=== PATIENT | female | born 1995 | race Caucasian/White ===

== ENCOUNTER 2018-09-08 08:12 | Emergency (ER) | payer SELFPAY ==
--- NOTE | 2018-09-08 09:09 | Emergency Department Report ---
ED General Adult HPI - General Chief complaint: Medical Clearance Stated complaint: BLOOD TEST/ULTRASOUND Time Seen by Provider: 09/08/18 08:43 Source: patient Mode of arrival: Ambulatory Limitations: No Limitations - History of Present Illness Initial comments: Patient presents to emergency department for repeat beta hCG level for concerns of a miscarriage. Patient was here on Thursday for vaginal bleeding and abdominal cramping. - Related Data Previous Rx's Medication Instructions Recorded Last Taken Type No.137/Iron/Folic Acd 1 each PO QDAY 30 Days #30 tablet 09/05/18 Unknown Rx [ Vitamin Tablet] Allergies Allergy/AdvReac Type Severity Reaction Status Date / Time No Known Allergies Allergy Verified 09/08/18 08:18 ED Review of Systems ROS: Stated complaint: BLOOD TEST/ULTRASOUND Other details as noted in HPI Comment: All other systems reviewed and negative Constitutional: denies: chills, fever Eyes: denies: eye pain, eye discharge, vision change ENT: denies: ear pain, throat pain Respiratory: denies: cough, shortness of breath, wheezing Cardiovascular: denies: chest pain, palpitations Endocrine: no symptoms reported Gastrointestinal: denies: abdominal pain, nausea, diarrhea Genitourinary: denies: urgency, dysuria, discharge Musculoskeletal: denies: back pain, joint swelling, arthralgia Skin: denies: rash, lesions Neurological: denies: headache, weakness, paresthesias Psychiatric: denies: anxiety, depression Hematological/Lymphatic: denies: easy bleeding, easy bruising ED Past Medical Hx - Past Medical History Previous Medical History?: No Additional medical history: Miscarriage 2014 - Social History Smoking Status: Never Smoker Substance Use Type: None - Medications Home Medications: Home Medications Medication Instructions Recorded Confirmed Last Taken Type No.137/Iron/Folic Acd 1 each PO QDAY 30 Days #30 tablet 09/05/18 Unknown Rx [ Vitamin Tablet] ED Physical Exam - General Limitations: No Limitations General appearance: alert, in no apparent distress - Head Head exam: Present: atraumatic, normocephalic - Eye Eye exam: Present: normal appearance - ENT ENT exam: Present: mucous membranes moist - Neck Neck exam: Present: normal inspection - Respiratory Respiratory exam: Present: normal lung sounds bilaterally. Absent: respiratory distress - Cardiovascular Cardiovascular Exam: Present: regular rate, normal rhythm. Absent: systolic murmur, diastolic murmur, rubs, gallop - GI/Abdominal GI/Abdominal exam: Present: soft, normal bowel sounds - Extremities Exam Extremities exam: Present: normal inspection - Back Exam Back exam: Present: normal inspection - Neurological Exam Neurological exam: Present: alert, oriented X3, CN II-XII intact. Absent: motor sensory deficit - Psychiatric Psychiatric exam: Present: normal affect, normal mood - Skin Skin exam: Present: warm, dry, intact, normal color. 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 ED Disposition Clinical Impression: Miscarriage, threatened, early Disposition: - TO HOME OR SELFCARE Is pt being admited?: No Does the pt Need Aspirin: No Condition: Stable Instructions: Threatened Miscarriage (ED) Referrals: PRIMARY CAREMD [Primary Care Provider] - 3-5 Days ANTONY AGUILAR MD [Staff Physician] - 3-5 Days [facility] [Provider Group] - 3-5 Days [facility] [Provider Group] - 3-5 Days Time of Disposition: 09:08
[2018-09-08 09:53] VITALS: BP 130/81
[2018-09-09] MEDS ORDERED: NACL 0.9% 50 ML ONE (10:33)
== END 2018-09-08 09:41 | disposition home or self-care (01) ==
LOC: ED 08:12
DX: O26.891 Other specified pregnancy related conditions, first trimester (principal); O20.0 Threatened abortion; Z3A.00 Weeks of gestation of pregnancy not specified
CPT/HCPCS: 36415; 84702; 99283

== ENCOUNTER 2019-10-31 19:40 | Inpatient (IN) | payer MEDICAID ==
[2019-10-31] MEDS ORDERED: fentaNYL 100 MCG/2 ML INJ IV PRN (21:34)
[2019-10-31] MEDS ORDERED: BUTORPHANOL 2 MG/1 ML INJ IV PRN (21:34)
[2019-10-31] MEDS ORDERED: ZOLPIDEM 5 MG TAB PO PRN (21:39)
[2019-10-31] MEDS ORDERED: DINOPROSTONE 10 MG VAG SUPP VG ONE (21:39)
[2019-10-31 22:14] LABS: Hematocrit 35.9 % (30.3-42.9); Hemoglobin 11.6 gm/dl (10.1-14.3); Mean Corpuscular HGB Conc 32 % (30-34); Mean Corpuscular Volume 77 fl (79-97); Platelet Count 183 K/mm3 (140-440); Red Blood Count 4.68 M/mm3 (3.65-5.03); Red Cell Distribution Width 19.1 % (13.2-15.2)
--- NOTE | 2019-11-01 09:04 | History and Physical Report ---
History of Present Illness Date of examination: 11/01/19 Date of admission: 10/31/19 19:40 Chief complaint: IOL secondary to post-dates History of present illness: 24 yo, @ 41 wks gestation, initiated care with [facility] at 13 wks gestation. Her has been complicated by an elevated HgbA1c of 5.7; Morbid obesity; Vit D deficiency; elevated 1 hr gtt - 146; HSVII positive status; and subclinical hypothyroidism. She presents to [facility] for IOL secondary to post-dates . She reports +FM, denies VB or LOF. Labs: O+; antibody negative; Rubella immune; VDRL non-reactive; HBsAg negative; HIV negative; Platelets 223k; Gc/Chlamydia/Trich negative; Hgb A1c 5.7; Vit D 15.2; Varicella immune; HSVII positive; MSAFP/Multiple markers negative; 1 hr 146; 3 hr - 85, 184, 140, 123; GBS negative. Past History Past Medical History: other (SAB - 2014, 2017) Past Surgical History: no surgical history Family/Genetic History: stroke (father), other (ID - father) Social history: , lives with family, full code. denies: smoking, alcohol abuse, prescription drug abuse, IV drug use - Obstetrical History Expected Date of Delivery: 10/25/19 Actual Gestation: 41 Week(s) 0 Day(s) : 3 Para: 0 Hx # Term Pregnancies: 0 Number of Pregnancies: 0 Spontaneous Abortions: 2 Induced : 0 Number of Living Children: 0 #1 year: 2,015 (SAB) #2 year: 2,018 (SAB) Medications and Allergies Allergies Allergy/AdvReac Type Severity Reaction Status Date / Time No Known Allergies Allergy Verified 09/08/18 08:18 Home Medications Medication Instructions Recorded Confirmed Last Taken Type No.137/Iron/Folic Acd 1 each PO QDAY 30 Days #30 tablet 09/05/18 11/01/19 10/31/19 12:00 Rx [ Vitamin Tablet] Active Meds: Active Medications Butorphanol Tartrate (Stadol) 2 mg IV Q4HR PRN PRN Reason: Pain , Severe (7-10) Fentanyl (Sublimaze) 100 mcg IV Q2H PRN PRN Reason: Labor Pain Lactated Ringer's (Lactated Ringers) 1,000 mls @ 125 mls/hr IV DIRECT RUTHIE Zolpidem Tartrate (Ambien) 5 mg PO QHS PRN PRN Reason: Sleep Last Admin: 11/01/19 00:21 Dose: 5 mg Documented by: Review of Systems All systems: negative - Vital Signs Vital signs: Vital Signs Pulse Pulse Ox 92 H 98 10/31/19 20:37 10/31/19 20:37 Temp Pulse Resp BP Pulse Ox 98.1 F 67 20 113/73 98 10/31/19 20:38 11/01/19 00:06 10/31/19 20:38 11/01/19 00:06 10/31/19 20:37 - Physical Exam Breasts: Positive: deferred Cardiovascular: Regular rate Lungs: Positive: Normal air movement Abdomen: Positive: other (gravid) Genitourinary (Female): Positive: normal external genitalia, normal perenium Vagina: Positive: normal moisture Uterus: Positive: enlarged (S=D) Extremities: Positive: normal Deep Tendon Reflex Grade: Normal +2 - Obstetrical FHR: category 1 Uterine Contraction Monitor Mode: External Cervical Dilatation: 0 Cervical Effacement Percentage: 50 station: -3 Uterine Contraction Pattern: Irregular Uterine Tone Measurement Phase: Resting Uterine Contraction Intensity: Mild Results Result Diagrams: 10/31/19 21:49 Abnormal lab results 10/31/19 Range/Units 21:49 MCV 77 L (79-97) fl MCH 25 L (28-32) pg RDW 19.1 H (13.2-15.2) % All other labs normal. Assessment and Plan - Patient Problems (1) Post-dates Current Visit: Yes Status: Acute (2) Encounter for induction of labor Current Visit: Yes Status: Acute Plan to address problem: Admit to L & D IOL with cervidil x 12 hrs as tolerated IV pain medications if needed Anticipate (3) Morbid obesity Current Visit: Yes Status: Acute (4) Adult hypothyroidism Current Visit: Yes Status: Acute
[2019-11-01] MEDS ORDERED: DINOPROSTONE 10 MG VAG SUPP VG ONE (15:23)
[2019-11-02] MEDS ORDERED: OXYTOCIN DRIP 30,000 MILLIUNITS/500 ML BAG IV ONE (03:34)
[2019-11-02] MEDS: LACTATED RINGERS 1,000 ML IV SCH ×2 (04:01→16:14)
[2019-11-02] MEDS ORDERED: OXYTOCIN DRIP 30 UNITS/500 ML BAG IV ONE (09:00)
--- NOTE | 2019-11-02 09:58 | Progress Note ---
Assessment and Plan A: IUP @ 41 1/ Weeks Category I Tracing GBS Negative P: AROM Re-start Pitocin Augmentation Subjective - Subjective Date of service: 11/02/19 Patient reports: movement normal Objective - Exam Breasts: normal Cardiovascular: Regular rate Lungs: Clear to auscultation, Normal air movement Abdomen: Present: normal appearance, soft, normal bowel sounds Uterus: Present: normal, firm, fundal height above umbilicus FHR: category 1 Uterine Contraction Monitor Mode: External Cervical Dilatation: 4 (Large amount of clear fluid upon AROM @0949) Cervical Effacement Percentage: 70 station: -1 Uterine Contraction Pattern: Irregular Uterine Tone Measurement Phase: Resting Uterine Contraction Intensity: Mild Extremities: normal - Labs Labs: Abnormal Labs 10/31/19 21:49 MCV 77 L MCH 25 L RDW 19.1 H
[2019-11-02] MEDS ORDERED: fentaNYL-BUPIV 2 MCG/ML-0.125% 200 MCG/100 ML BAG EPIDURAL ONE (14:38)
--- NOTE | 2019-11-02 14:39 | Progress Note ---
Assessment and Plan A: IUP @ 41 1/7 Weeks Category II Tracing Active Labor GBS Negative P: IUPC Placed Continue Pitocin Augmentation Prepare for Epidural Anesthesia Multiple Maternal Position Changes Subjective - Subjective Date of service: 11/02/19 Patient reports: movement normal, contractions, other (requesting epidural anesthesia) Objective - Vital Signs Vital Signs: Vital Signs - 12hr 11/02/19 11/02/19 13:25 14:26 Pulse Rate 80 71 Blood Pressure 116/73 138/90 - Exam Breasts: normal Cardiovascular: Regular rate Lungs: Clear to auscultation, Normal air movement Abdomen: Present: normal appearance, soft Uterus: Present: normal, firm, fundal height above umbilicus FHR: category 2 FHR comments: FHR: 134, moderate varability, -accels, +early decels Uterine Contraction Monitor Mode: Internal Cervical Dilatation: 6 (leaking a moderate amount of clear fluid) Cervical Effacement Percentage: 80 station: +1 Uterine Contraction Pattern: Regular Uterine Tone Measurement Phase: Resting Uterine Contraction Intensity: Moderate Extremities: normal - Labs Labs: Abnormal Labs 10/31/19 21:49 MCV 77 L MCH 25 L RDW 19.1 H
[2019-11-02] MEDS ORDERED: fentaNYL-BUPIV 2 MCG/ML-0.125% 200 MCG/100 ML BAG EPIDURAL SCH (15:00)
[2019-11-02] MEDS ORDERED: NALOXONE 2 MG/2 ML INJ IV PRN (15:00)
[2019-11-02] MEDS ORDERED: ePHEDrine SULFATE 50 MG/1 ML INJ IV PRN (15:00)
[2019-11-02] MEDS ORDERED: SODIUM CHLORIDE 0.9% 1000 ML 1,000 ML ONE (15:21)
--- NOTE | 2019-11-02 15:30 | Anesthesia Consultation ---
Anesthesia Consult and Med Hx Date of service: 11/02/19 - Airway Anesthetic Teeth Evaluation: Good ROM Head & Neck: Adequate Mental/Hyoid Distance: Adequate Mallampati Class: Class II Intubation Access Assessment: Probably Good - Pulmonary Exam CTA: Yes - Cardiac Exam Cardiac Exam: RRR - Pre-Operative Health Status ASA Pre-Surgery Classification: ASA2 Proposed Anesthetic Plan: Epidural - Pre-Anesthesia Comment Pre-Anesthesia Comments: PSH: denies - Pulmonary Hx Smoking: No Hx Asthma: No Hx Respiratory Symptoms: No SOB: No COPD: No Home Oxygen Therapy: No Hx Pneumonia: No Hx Sleep Apnea: No - Cardiovascular System Hx Hypertension: No Hx Coronary Artery Disease: No Hx Heart Attack/AMI: No Hx Angina: No Hx Percutaneous Transluminal Coronary Angioplasty (PTCA): No Hx Cardia Arrhythmia: No Hx Pacemaker: No Hx Internal Defibrillator: No Hx Valvular Heart Disease: No Hx Heart Murmur: No Hx Peripheral Vascular Disease: No - Central Nervous System Hx Seizures: No Hx Psychiatric Problems: No - Gastrointestinal Hx Ulcer: No Hx Gastroesophageal Reflux Disease: No - Endocrine Hx Renal Disease: No Hx End Stage Renal Disease: No Hx Cirrhosis: No Hx Liver Disease: No Hx Insulin Dependent Diabetes: No Hx Non-Insulin Dependent Diabetes: No Hx Thyroid Disease: No Hx Hypothyroidism: No Hx Hyperthyroidism: No - Hematic Hx Anemia: No Hx Sickle Cell Disease: No - Other Systems Hx Alcohol Use: No Hx Substance Use: No Hx Cancer: No Hx Obesity: Yes (BMI 38)
[2019-11-02] MEDS ORDERED: DEXMEDETOMIDINE 200 MCG/2 ML VIAL IV ONE (16:33)
[2019-11-02] MEDS ORDERED: BUPIVACAINE/PF (0.25%) 2.5 MG/ML 10 ML VIAL INFILTRATI ONE (16:47)
[2019-11-02] MEDS ORDERED: MINERAL OIL 30 ML ORAL LIQD ONE (17:41)
[2019-11-02] MEDS ORDERED: OXYTOCIN 20 UNIT/1000ML DRIP 40,000 MILLIUNITS/2,000 ML BAG IV ONE (17:56)
[2019-11-02] MEDS ORDERED: WITCH HAZEL/ GLYCERIN PAD TP PRN (18:31)
[2019-11-02] MEDS ORDERED: diphenhydrAMINE 25 MG CAP PO PRN (18:31)
[2019-11-02] MEDS ORDERED: HYDROcodone/ACETAMINOPHEN 5-325 MG TAB PO PRN (18:31)
[2019-11-02] MEDS ORDERED: MAGNESIUM HYDROXIDE (MOM) ORAL LIQD UDC PO PRN (18:31)
[2019-11-02] MEDS ORDERED: BENZOCAINE/MENTHOL 20/0.5% TOP SPRAY 56 GM TP PRN (18:31)
[2019-11-02] MEDS ORDERED: HYDROCORTISONE 25 MG RECTAL SUPP PR PRN (18:31)
--- NOTE | 2019-11-02 18:40 | Procedure Note ---
OB Delivery Note - Delivery Date of Delivery: 11/02/19 (1751) Surgeon: LOUIS ART Estimated blood loss: other (250) - Vaginal Delivery presentation: vertex Delivery position: OA Intrapartum events: mult.variable deceleratio Delivery induction: cervidil Delivery augmentation: rupture of membranes, pitocin Delivery monitor: external FHT, internal uterine Route of delivery: Delivery placenta: spontaneous Delivery cord: 3 umbilical vessels Delivery laceration: 1st degree Anesthesia: epidural Delivery comments: of a live 7'14 female infant over first degree vaginal lacerations under epidural anesthesia with Apgars of 8 and 9 at 1751 on 11/02/2019. Infant directly to maternal abd/chest, skin to skin contact. Spontaneous delivery of placenta complete and intact with Morton side presenting at 1756. Fundus is firm and midline located 4 below the U. Lochia is scant. Vaginal lacerations repaired with 2-[address]-1. Delayed cord clamping and cutting; Cord cut by the Father of the Baby. Cord blood collected; Placenta discarded. - Infant A at 1 minute: 8 at 5 minutes: 9 Gender: Female (7'14)
[2019-11-02] MEDS: IBUPROFEN 600 MG TAB PO SCH (19:37)
[2019-11-03] MEDS: IBUPROFEN 600 MG TAB PO SCH ×4 (05:43→18:06)
[2019-11-03 08:24] LABS: Hematocrit 28.6 % (30.3-42.9); Hemoglobin 9.1 gm/dl (10.1-14.3)
[2019-11-03] MEDS ORDERED: PRENATAL VIT27-FE FUMARATE-FOLIC ACID VIT TAB PO SCH (10:00)
--- NOTE | 2019-11-03 11:56 | Progress Note ---
Assessment and Plan A: PP Day 1 Asymptomatic Anemia P: Follow Routine Orders FeSO4 325mg PO BID D/C Home today per patient request RTO in 6 Weeks Subjective - Subjective Date of service: 11/03/19 Patient reports: appetite normal, voiding normally, pain well controlled, flatus, bowel movement, ambulating normally : doing well, bottle feeding Objective - Vital Signs Latest vital signs: Vital Signs Temp Pulse Resp BP BP BP Pulse Ox 11/03/19 09:10 97.9 F 72 18 123/77 11/03/19 07:44 18 113/69 11/03/19 04:00 98.6 F 69 16 102/69 11/02/19 23:30 98.6 F 72 18 109/71 11/02/19 21:20 97.8 F 68 20 119/68 97 11/02/19 20:47 97.5 F L 77 123/67 11/02/19 20:25 76 120/66 11/02/19 20:10 73 124/66 11/02/19 19:55 81 124/68 11/02/19 19:40 68 118/66 11/02/19 19:37 18 11/02/19 19:25 88 113/67 11/02/19 19:10 80 121/72 11/02/19 18:58 78 113/62 11/02/19 18:11 71 138/63 11/02/19 17:56 72 138/82 11/02/19 17:46 85 97 11/02/19 17:45 87 11/02/19 17:41 80 118/56 97 11/02/19 17:36 84 98 11/02/19 17:31 95 H 100 11/02/19 17:27 75 120/58 11/02/19 17:26 76 99 11/02/19 17:21 81 99 11/02/19 17:16 78 98 11/02/19 17:11 78 106/57 99 11/02/19 17:06 77 99 11/02/19 17:01 79 97 11/02/19 16:56 67 113/55 100 11/02/19 16:51 76 100 11/02/19 16:46 80 100 11/02/19 16:41 71 100 11/02/19 16:36 74 98 11/02/19 16:31 68 100 11/02/19 16:26 77 99 11/02/19 16:21 79 98 11/02/19 16:16 78 100 11/02/19 16:11 77 97 11/02/19 16:10 75 91/50 11/02/19 16:06 71 98 11/02/19 16:03 72 98/50 11/02/19 16:01 61 99 11/02/19 16:00 13 98/55 11/02/19 15:57 80 98/55 11/02/19 15:56 79 99 11/02/19 15:51 66 100 11/02/19 15:46 85 98 11/02/19 15:41 80 92/51 98 11/02/19 15:36 80 99 11/02/19 15:31 69 99 11/02/19 15:26 84 98 11/02/19 15:25 75 113/61 11/02/19 15:22 63 136/77 11/02/19 15:21 74 99 11/02/19 15:19 78 136/77 11/02/19 15:16 65 136/79 99 11/02/19 15:13 74 136/81 11/02/19 15:11 75 99 11/02/19 15:10 80 139/80 11/02/19 15:06 80 98 11/02/19 15:03 74 137/80 11/02/19 15:01 67 100 11/02/19 14:46 82 117/67 11/02/19 14:45 69 148/81 11/02/19 14:43 87 134/87 11/02/19 14:42 80 139/86 11/02/19 14:41 79 151/91 11/02/19 14:26 71 138/90 11/02/19 13:25 80 116/73 Intake and Output 11/02/19 11/03/19 11/03/19 22:59 06:59 14:59 Intake Total 500 120 Output Total 300 2200 600 Balance -300 -1700 -480 Intake: Oral 200 120 Intake, Free Water 300 Output: Urine 300 2200 600 Indwelling Catheter 300 Void 2200 600 Other: Total, Intake Amount 200 120 Total, Output Amount 300 800 600 # Voids Void 1 2 Estimated Blood Loss 250 - Exam Breasts: Present: normal Cardiovascular: Present: Regular rate Lungs: Present: Clear to auscultation, Normal air movement Abdomen: Present: normal appearance, soft, normal bowel sounds Uterus: Present: normal, firm, fundal height below umbilicus Extremities: Present: normal - Labs Labs: Abnormal lab results 11/03/19 Range/Units 08:10 Hgb 9.1 L (10.1-14.3) gm/dl Hct 28.6 L D (30.3-42.9) %
--- NOTE | 2019-11-03 11:57 | Discharge Summary ---
Providers - Providers Date of Admission: 11/01/19 14:06 Date of discharge: 11/03/19 Attending physician: KELLY POOL MD Primary care physician: KELLY POOL MD Hospitalization Reason for admission: induction of labor Delivery: Episiotomy: none Laceration: 1st degree Other procedures: none complications: none Discharge diagnosis: IUP at term delivered baby: female Condition at discharge: Good Disposition: DC-01 TO HOME OR SELFCARE Plan - Provider Discharge Summary Activity: routine, no sex for 6 weeks, no heavy lifting 4 weeks, no strenuous exercise Diet: routine Instructions: routine Additional instructions: [] Smoking cessation referral if applicable(refer to patient education folder for contact #) [] Refer to [facility]'s [facility] Booklet Call your doctor immediately for: * Fever > 100.5 * Heavy vaginal bleeding ( >1 pad per hour) * Severe persistent headache * Shortness of breath * Reddened, hot, painful area to leg or breast * Drainage or odor from incision. * Keep incision clean and dry at all times and follow doctor's instructions regarding bathing/showering - Follow up plan Follow up: KELLY POOL MD [Primary Care Provider] - 6 Weeks
[2019-11-03] MEDS ORDERED: FERROUS SULFATE 325 MG TAB PO SCH (12:00)
[2019-11-03 17:16] VITALS: BP 117/77
== END 2019-11-03 18:21 | disposition home or self-care (01) | DRG 775 ==
LOC: LD 19:40 → UNDOADMIN 19:40 → LD 11-01 14:06 → OB 11-02 20:25
PROVIDERS: ADMIT Obstetrics & Gynecology; ATTEND Obstetrics & Gynecology
PROC: 10E0XZZ Delivery of Products of Conception, External Approach (ICD-10-PCS; principal; 2019-11-02)
PROC: 3E0P7VZ Introduction of Hormone into Female Reproductive, Via Natural or Artificial Opening (ICD-10-PCS; 2019-11-02)
PROC: 10907ZC Drainage of Amniotic Fluid, Therapeutic from Products of Conception, Via Natural or Artificial Opening (ICD-10-PCS; 2019-11-02)
PROC: 10H07YZ Insertion of Other Device into Products of Conception, Via Natural or Artificial Opening (ICD-10-PCS; 2019-11-02)
PROC: 3E0R3BZ Introduction of Anesthetic Agent into Spinal Canal, Percutaneous Approach (ICD-10-PCS; 2019-11-02)
PROC: 00HU33Z Insertion of Infusion Device into Spinal Canal, Percutaneous Approach (ICD-10-PCS; 2019-11-02)
DX: O48.0 Post-term pregnancy (principal); O99.214 Obesity complicating childbirth; E66.9 Obesity, unspecified; O99.284 Endocrine, nutritional and metabolic diseases complicating childbirth; E03.9 Hypothyroidism, unspecified; O99.02 Anemia complicating childbirth; D64.9 Anemia, unspecified; O76 Abnormality in fetal heart rate and rhythm complicating labor and delivery; O71.4 Obstetric high vaginal laceration alone; Z3A.41 41 weeks gestation of pregnancy; Z37.0 Single live birth; Z82.3 Family history of stroke
CPT/HCPCS: 36415; 59200; 85014; 85018; 85027; 86592; 86850; 86900; 86901; 96360; 96361; 96365; 96366; 96374; 96376; G0378; J0595; J2590; J3490; J7030; J7120

== ENCOUNTER 2020-10-01 20:25 | Inpatient (IN) | payer MEDICAID ==
[2020-10-01] MEDS ORDERED: LACTATED RINGERS 1,000 ML ONE (21:00)
[2020-10-01 22:07] LABS: Hematocrit 33.9 % (30.3-42.9); Hemoglobin 11.7 gm/dl (10.1-14.3); Mean Corpuscular HGB Conc 34 % (30-34); Mean Corpuscular Volume 83 fl (79-97); Platelet Count 139 K/mm3 (140-440); Red Blood Count 4.11 M/mm3 (3.65-5.03); Red Cell Distribution Width 17.8 % (13.2-15.2)
[2020-10-01] MEDS ORDERED: LIDOCAINE (2%) 20 MG/1 ML VIAL 20 ML MDV INFILTRATI ONE (22:24)
[2020-10-01] MEDS ORDERED: DINOPROSTONE 10 MG VAG SUPP VG ONE (22:24)
[2020-10-01] MEDS ORDERED: MINERAL OIL 30 ML ORAL LIQD PO PRN (22:24)
[2020-10-01] MEDS ORDERED: AMPICILLIN/NS 2 GM/100 ML 2 GM/100 ML BAG IV ONE (22:24)
[2020-10-01] MEDS ORDERED: ePHEDrine SULFATE 50 MG/1 ML INJ IV PRN (22:24)
[2020-10-01] MEDS ORDERED: TERBUTALINE 1 MG/1 ML INJ SUB-Q PRN (22:24)
--- NOTE | 2020-10-01 22:37 | History and Physical Report ---
History of Present Illness Date of examination: 10/01/20 Date of admission: 10/01/20 20:25 Chief complaint: IOL for GDM History of present illness: 24 yo at 39w1d c/b Class II Obesity, GDM, late presentation to care, hx SAB x 2, GBS pos presenting for IOL for GDM at term. No labor complaints or PIH symptoms. +FM. Past History Past Medical History: no pertinent history Past Surgical History: no surgical history Family/Genetic History: heart disease, stroke Social history: no significant social history - Obstetrical History : 4 Para: 2 Hx # Term Pregnancies: 1 Number of Pregnancies: 0 Spontaneous Abortions: 2 Number of Living Children: 1 Medications and Allergies Allergies Allergy/AdvReac Type Severity Reaction Status Date / Time No Known Allergies Allergy Verified 09/08/18 08:18 Home Medications Medication Instructions Recorded Confirmed Last Taken Type No.137/Iron/Folic Acd 1 each PO QDAY 30 Days #30 tablet 09/05/18 11/01/19 10/31/19 12:00 Rx [ Vitamin Tablet] Review of Systems All systems: negative (expect HPI) - Vital Signs Vital signs: Vital Signs Pulse BP 73 127/59 10/01/20 20:57 10/01/20 20:57 Temp Pulse Resp BP Pulse Ox 98.1 F 73 16 127/59 10/01/20 21:18 10/01/20 20:57 10/01/20 21:18 10/01/20 20:57 - Physical Exam Abdomen: Positive: normal appearance, normal bowel sounds, other (gravid) - Obstetrical FHR: category 1 Cervical Dilatation: 1 Cervical Effacement Percentage: 40 station: -2 Uterine Contraction Pattern: Absent Results Result Diagrams: 10/01/20 21:40 Abnormal lab results 10/01/20 Range/Units 21:40 RDW 17.8 H (13.2-15.2) % Plt Count 139 L (140-440) K/mm3 All other labs normal. Assessment and Plan - Patient Problems (1) Gestational diabetes Current Visit: Yes Status: Acute Qualifiers: Gestational diabetes mellitus control: diet-controlled Plan to address problem: For IOL with cervidil for cervical ripening then pitocin per protocol --CBGs per routine, insulin prn --Anticipate (2) GBS (group B Streptococcus carrier), +RV culture, currently Current Visit: Yes Status: Acute Plan to address problem: Amp for GBS ppx
[2020-10-01] MEDS ORDERED: OXYTOCIN DRIP 30 UNITS/500 ML BAG IV SCH (23:00)
[2020-10-02 01:14] LABS: Hematocrit 35.6 % (30.3-42.9); Hemoglobin 11.5 gm/dl (10.1-14.3); Mean Corpuscular HGB Conc 32 % (30-34); Mean Corpuscular Volume 85 fl (79-97); Platelet Count 128 K/mm3 (140-440); Red Blood Count 4.19 M/mm3 (3.65-5.03); Red Cell Distribution Width 18.1 % (13.2-15.2)
[2020-10-02] MEDS: AMPICILLIN/NS 1 GM/50 ML 1 GM/50 ML BAG IV SCH ×5 (03:37→19:01)
--- NOTE | 2020-10-02 11:22 | Progress Note ---
Assessment and Plan - Patient Problems (1) Encounter for induction of labor Current Visit: No Status: Acute Plan to address problem: Shower and eat Initiate Pitocin titration as tolerated Pain meds as desired per orders Anticipate (2) Gestational diabetes Current Visit: Yes Status: Acute Qualifiers: Gestational diabetes mellitus control: diet-controlled Plan to address problem: Monitor glucose levels as directed (3) GBS (group B Streptococcus carrier), +RV culture, currently Current Visit: Yes Status: Acute Plan to address problem: Continue GBS protocol (4) Adult hypothyroidism Current Visit: No Status: Acute (5) Morbid obesity Current Visit: No Status: Acute Subjective - Subjective Date of service: 10/02/20 Principal diagnosis: IOL; GDM Interval history: See admission H & P Patient reports: movement normal, contractions ("light with back pain"), no new complaints, no loss of fluid, no vaginal bleeding Objective - Vital Signs Vital Signs: Vital Signs - 12hr 10/02/20 10/02/20 10/02/20 03:00 03:01 06:36 Temperature 98.1 F Pulse Rate 71 73 Respiratory 16 Rate Blood Pressure 109/55 110/66 O2 Sat by Pulse Oximetry 10/02/20 10/02/20 10/02/20 07:21 07:30 07:50 Temperature 98.1 F Pulse Rate 72 67 Respiratory 20 Rate Blood Pressure O2 Sat by Pulse 98 99 Oximetry 10/02/20 10/02/20 10/02/20 07:55 08:00 08:05 Temperature Pulse Rate 80 75 74 Respiratory Rate Blood Pressure O2 Sat by Pulse 98 98 98 Oximetry 10/02/20 10/02/20 10/02/20 08:10 08:15 08:20 Temperature Pulse Rate 74 66 70 Respiratory Rate Blood Pressure O2 Sat by Pulse 98 99 98 Oximetry 10/02/20 10/02/20 10/02/20 08:25 08:30 08:35 Temperature Pulse Rate 78 67 69 Respiratory Rate Blood Pressure O2 Sat by Pulse 98 97 97 Oximetry 10/02/20 10/02/20 10/02/20 08:40 08:45 08:50 Temperature Pulse Rate 73 67 74 Respiratory Rate Blood Pressure O2 Sat by Pulse 98 98 97 Oximetry 10/02/20 10/02/20 10/02/20 08:55 09:00 09:05 Temperature Pulse Rate 71 72 74 Respiratory Rate Blood Pressure O2 Sat by Pulse 97 98 96 Oximetry 10/02/20 10/02/20 10/02/20 09:10 09:15 09:20 Temperature Pulse Rate 69 82 75 Respiratory Rate Blood Pressure O2 Sat by Pulse 96 96 96 Oximetry 10/02/20 10/02/20 10/02/20 09:25 09:30 09:36 Temperature Pulse Rate 66 81 70 Respiratory Rate Blood Pressure O2 Sat by Pulse 97 98 99 Oximetry 10/02/20 10/02/20 10/02/20 09:41 09:46 10:02 Temperature Pulse Rate 77 73 70 Respiratory Rate Blood Pressure O2 Sat by Pulse 97 97 100 Oximetry 10/02/20 10/02/20 10/02/20 10:07 10:12 10:17 Temperature Pulse Rate 66 76 75 Respiratory Rate Blood Pressure O2 Sat by Pulse 98 98 98 Oximetry 10/02/20 10/02/20 10/02/20 10:22 10:27 10:32 Temperature Pulse Rate 74 74 73 Respiratory Rate Blood Pressure O2 Sat by Pulse 98 99 98 Oximetry 10/02/20 10/02/20 10/02/20 10:37 10:42 10:47 Temperature Pulse Rate 77 80 70 Respiratory Rate Blood Pressure O2 Sat by Pulse 98 97 99 Oximetry 10/02/20 10/02/20 10/02/20 10:52 10:57 11:02 Temperature Pulse Rate 77 78 67 Respiratory Rate Blood Pressure O2 Sat by Pulse 98 98 98 Oximetry 10/02/20 10/02/20 11:07 11:12 Temperature Pulse Rate 76 77 Respiratory Rate Blood Pressure O2 Sat by Pulse 98 100 Oximetry - Exam Breasts: deferred Cardiovascular: Regular rate Lungs: Normal air movement FHR: category 1 Uterine Contraction Monitor Mode: External Cervical Dilatation: 4 (vertex) Cervical Effacement Percentage: 60 (Cervidil removed at 1110) station: -4 Uterine Contraction Frequency (min): 8-9 Uterine Contraction Pattern: Irregular Uterine Tone Measurement Phase: Resting Uterine Contraction Intensity: Mild Extremities: edema - Labs Labs: Abnormal Labs 10/01/20 10/02/20 21:40 00:16 RDW 17.8 H 18.1 H Plt Count 139 L 128 L Laboratory Results - last 24 hr 10/01/20 10/01/20 10/01/20 21:40 21:40 21:40 WBC 8.1 RBC 4.11 Hgb 11.7 Hct 33.9 MCV 83 MCH 28 MCHC 34 RDW 17.8 H Plt Count 139 L POC Glucose Syphilis IgG Antibody Nonreactive Blood Type O POSITIVE Antibody Screen Negative 10/01/20 10/02/20 23:22 00:16 WBC 8.0 RBC 4.19 Hgb 11.5 Hct 35.6 MCV 85 MCH 28 MCHC 32 RDW 18.1 H Plt Count 128 L POC Glucose 76 Syphilis IgG Antibody Blood Type Antibody Screen
[2020-10-02] MEDS ORDERED: OXYTOCIN DRIP 30 UNITS/500 ML BAG IV SCH (12:00)
[2020-10-02] MEDS ORDERED: NALOXONE 2 MG/2 ML INJ IV PRN (15:53)
--- NOTE | 2020-10-02 15:53 | Anesthesia Consultation ---
Anesthesia Consult and Med Hx Date of service: 10/02/20 - Airway Anesthetic Teeth Evaluation: Good ROM Head & Neck: Adequate Mental/Hyoid Distance: Adequate Mallampati Class: Class II Intubation Access Assessment: Probably Good - Pulmonary Exam CTA: Yes - Cardiac Exam Cardiac Exam: RRR - Pre-Operative Health Status ASA Pre-Surgery Classification: ASA3 Proposed Anesthetic Plan: Epidural - Pulmonary Hx Smoking: No Hx Asthma: No Hx Respiratory Symptoms: No SOB: No COPD: No Hx Pneumonia: No Hx Sleep Apnea: No - Cardiovascular System Hx Hypertension: No Hx Coronary Artery Disease: No Hx Heart Attack/AMI: No Hx Angina: No Hx Percutaneous Transluminal Coronary Angioplasty (PTCA): No Hx Cardia Arrhythmia: No Hx Pacemaker: No Hx Internal Defibrillator: No Hx Valvular Heart Disease: No Hx Heart Murmur: No Hx Peripheral Vascular Disease: No - Central Nervous System Hx Seizures: No Hx Psychiatric Problems: No - Gastrointestinal Hx Ulcer: No Hx Gastroesophageal Reflux Disease: No - Endocrine Hx Renal Disease: No Hx End Stage Renal Disease: No Hx Cirrhosis: No Hx Liver Disease: No Hx Insulin Dependent Diabetes: No Hx Non-Insulin Dependent Diabetes: Yes Hx Thyroid Disease: No Hx Hypothyroidism: No Hx Hyperthyroidism: No - Hematic Hx Anemia: No Hx Sickle Cell Disease: No - Other Systems Hx Alcohol Use: No Hx Substance Use: No Hx Cancer: No Hx Obesity: Yes (BMI 38)
[2020-10-02] MEDS ORDERED: fentaNYL-BUPIV 2 MCG/ML-0.125% 200 MCG/100 ML BAG EPIDURAL SCH (16:00)
[2020-10-02] MEDS: LACTATED RINGERS 1,000 ML IV SCH ×2 (16:04→17:07)
--- NOTE | 2020-10-02 16:18 | Progress Note ---
Labor Epidural - Labor Epidural Start Time: 16:05 Stop Time: 16:14 Performed by:: ALDO RODRIGUEZ Procedure: Patient is requesting epidural for labor pain. H&P, and labs reviewed. Procedure explained, questions answered, consent obtained. Patient in sitting position with blood pressure cuff and pulse ox on and working. Timeout performed immediately before start of procedure. Sterile betadine prep/drape. 3 mL 1% lidocaine skin wheal at L[3]-L[4]. 18-gauge Penanatead epidural needle advanced to [id number] with saline at 10 cm. 27-gauge spinal needle advanced until clear, free-flowing CSF. Intrathecal dexmedetomidine [5] mcg administered and needle removed. Epidural catheter advanced to 15 cm, negative aspiration for blood and csf, negative test dose 3 ml 1.5% lidocaine with epinephrine. Sterile steri-strips and tegaderm applied, followed by tape reinforcement. Patient tolerated procedure well.
[2020-10-02] MEDS: ePHEDrine SULFATE 50 MG/1 ML INJ IV PRN ×3 (16:33→17:05)
--- NOTE | 2020-10-02 20:16 | Progress Note ---
Assessment and Plan - Patient Problems (1) Encounter for induction of labor Current Visit: No Status: Acute Plan to address problem: AROM @2010, blood-tinged fluids Anticipate (2) Gestational diabetes Current Visit: Yes Status: Acute Qualifiers: Gestational diabetes mellitus control: diet-controlled Plan to address problem: Monitor glucose levels as directed (3) GBS (group B Streptococcus carrier), +RV culture, currently Current Visit: Yes Status: Acute Plan to address problem: Continue GBS protocol (4) Adult hypothyroidism Current Visit: No Status: Acute (5) Morbid obesity Current Visit: No Status: Acute Subjective - Subjective Date of service: 10/02/20 Principal diagnosis: IOL; GDM Interval history: See admission H & P Patient reports: vaginal bleeding, movement normal, contractions ("I can feel them"), no new complaints, no loss of fluid Objective - Vital Signs Vital Signs: Vital Signs - 12hr 10/02/20 10/02/20 10/02/20 08:15 08:20 08:25 Temperature Pulse Rate 66 70 78 Respiratory Rate Blood Pressure O2 Sat by Pulse 99 98 98 Oximetry 10/02/20 10/02/20 10/02/20 08:30 08:35 08:40 Temperature Pulse Rate 67 69 73 Respiratory Rate Blood Pressure O2 Sat by Pulse 97 97 98 Oximetry 10/02/20 10/02/20 10/02/20 08:45 08:50 08:55 Temperature Pulse Rate 67 74 71 Respiratory Rate Blood Pressure O2 Sat by Pulse 98 97 97 Oximetry 10/02/20 10/02/20 10/02/20 09:00 09:05 09:10 Temperature Pulse Rate 72 74 69 Respiratory Rate Blood Pressure O2 Sat by Pulse 98 96 96 Oximetry 10/02/20 10/02/20 10/02/20 09:15 09:20 09:25 Temperature Pulse Rate 82 75 66 Respiratory Rate Blood Pressure O2 Sat by Pulse 96 96 97 Oximetry 10/02/20 10/02/20 10/02/20 09:30 09:36 09:41 Temperature Pulse Rate 81 70 77 Respiratory Rate Blood Pressure O2 Sat by Pulse 98 99 97 Oximetry 10/02/20 10/02/20 10/02/20 09:46 10:02 10:07 Temperature Pulse Rate 73 70 66 Respiratory Rate Blood Pressure O2 Sat by Pulse 97 100 98 Oximetry 10/02/20 10/02/20 10/02/20 10:12 10:17 10:22 Temperature Pulse Rate 76 75 74 Respiratory Rate Blood Pressure O2 Sat by Pulse 98 98 98 Oximetry 10/02/20 10/02/20 10/02/20 10:27 10:32 10:37 Temperature Pulse Rate 74 73 77 Respiratory Rate Blood Pressure O2 Sat by Pulse 99 98 98 Oximetry 10/02/20 10/02/20 10/02/20 10:42 10:47 10:52 Temperature Pulse Rate 80 70 77 Respiratory Rate Blood Pressure O2 Sat by Pulse 97 99 98 Oximetry 10/02/20 10/02/20 10/02/20 10:57 11:02 11:07 Temperature Pulse Rate 78 67 76 Respiratory Rate Blood Pressure O2 Sat by Pulse 98 98 98 Oximetry 10/02/20 10/02/20 10/02/20 11:12 11:17 11:18 Temperature 98.3 F Pulse Rate 77 78 80 Respiratory 20 Rate Blood Pressure 124/75 O2 Sat by Pulse 100 98 Oximetry 10/02/20 10/02/20 10/02/20 11:22 11:27 11:32 Temperature Pulse Rate 73 68 73 Respiratory Rate Blood Pressure O2 Sat by Pulse 99 97 97 Oximetry 10/02/20 10/02/20 10/02/20 11:37 11:42 11:47 Temperature Pulse Rate 74 73 71 Respiratory Rate Blood Pressure O2 Sat by Pulse 96 99 98 Oximetry 10/02/20 10/02/20 10/02/20 11:52 11:57 12:02 Temperature Pulse Rate 70 63 85 Respiratory Rate Blood Pressure O2 Sat by Pulse 99 98 97 Oximetry 10/02/20 10/02/20 10/02/20 12:07 12:12 12:17 Temperature Pulse Rate 92 H 81 82 Respiratory Rate Blood Pressure O2 Sat by Pulse 97 98 97 Oximetry 10/02/20 10/02/20 10/02/20 12:22 13:40 13:45 Temperature Pulse Rate 72 83 82 Respiratory Rate Blood Pressure 115/65 O2 Sat by Pulse 100 98 98 Oximetry 10/02/20 10/02/20 10/02/20 13:50 13:55 14:00 Temperature Pulse Rate 86 80 75 Respiratory Rate Blood Pressure O2 Sat by Pulse 99 98 97 Oximetry 10/02/20 10/02/20 10/02/20 14:05 14:10 14:15 Temperature Pulse Rate 79 78 79 Respiratory Rate Blood Pressure 111/64 O2 Sat by Pulse 97 97 98 Oximetry 10/02/20 10/02/20 10/02/20 14:20 14:25 14:30 Temperature Pulse Rate 70 77 67 Respiratory Rate Blood Pressure O2 Sat by Pulse 97 97 98 Oximetry 10/02/20 10/02/20 10/02/20 14:35 14:45 14:46 Temperature Pulse Rate 76 87 65 Respiratory Rate Blood Pressure 120/71 O2 Sat by Pulse 98 97 Oximetry 10/02/20 10/02/20 10/02/20 14:50 14:55 15:00 Temperature Pulse Rate 71 73 69 Respiratory Rate Blood Pressure O2 Sat by Pulse 97 98 98 Oximetry 10/02/20 10/02/20 10/02/20 15:05 15:10 15:15 Temperature Pulse Rate 71 68 64 Respiratory Rate Blood Pressure O2 Sat by Pulse 98 99 97 Oximetry 10/02/20 10/02/20 10/02/20 15:20 15:25 15:30 Temperature Pulse Rate 68 92 H 64 Respiratory Rate Blood Pressure O2 Sat by Pulse 98 97 99 Oximetry 10/02/20 10/02/20 10/02/20 15:41 15:45 15:46 Temperature 98.2 F Pulse Rate 79 70 63 Respiratory 20 Rate Blood Pressure 119/70 O2 Sat by Pulse 98 99 Oximetry 10/02/20 10/02/20 10/02/20 15:51 15:56 16:01 Temperature Pulse Rate 70 70 87 Respiratory Rate Blood Pressure O2 Sat by Pulse 100 98 100 Oximetry 10/02/20 10/02/20 10/02/20 16:06 16:09 16:11 Temperature Pulse Rate 61 70 64 Respiratory Rate Blood Pressure 119/65 O2 Sat by Pulse 99 97 Oximetry 10/02/20 10/02/20 10/02/20 16:12 16:15 16:16 Temperature Pulse Rate 64 70 84 Respiratory Rate Blood Pressure 110/61 110/56 O2 Sat by Pulse 97 Oximetry 10/02/20 10/02/20 10/02/20 16:18 16:21 16:24 Temperature Pulse Rate 69 71 74 Respiratory Rate Blood Pressure 100/57 101/56 96/51 O2 Sat by Pulse 98 Oximetry 10/02/20 10/02/20 10/02/20 16:26 16:27 16:30 Temperature Pulse Rate 72 74 72 Respiratory Rate Blood Pressure 87/51 82/46 O2 Sat by Pulse 97 Oximetry 10/02/20 10/02/20 10/02/20 16:31 16:33 16:36 Temperature Pulse Rate 72 74 81 Respiratory Rate Blood Pressure 87/49 111/59 O2 Sat by Pulse 97 97 Oximetry 10/02/20 10/02/20 10/02/20 16:39 16:41 16:42 Temperature Pulse Rate 79 81 76 Respiratory Rate Blood Pressure 93/54 94/53 O2 Sat by Pulse 96 Oximetry 10/02/20 10/02/20 10/02/20 16:45 16:46 16:49 Temperature Pulse Rate 80 77 85 Respiratory Rate Blood Pressure 100/60 98/56 O2 Sat by Pulse 97 Oximetry 10/02/20 10/02/20 10/02/20 16:51 16:56 17:01 Temperature Pulse Rate 91 H 86 89 Respiratory Rate Blood Pressure 94/55 97/53 92/50 O2 Sat by Pulse 96 96 96 Oximetry 10/02/20 10/02/20 10/02/20 17:06 17:07 17:11 Temperature Pulse Rate 87 100 H 70 Respiratory Rate Blood Pressure 86/51 114/56 O2 Sat by Pulse 95 94 97 Oximetry 10/02/20 10/02/20 10/02/20 17:16 17:17 17:21 Temperature Pulse Rate 97 H 100 H 84 Respiratory Rate Blood Pressure 111/63 O2 Sat by Pulse 98 97 Oximetry 10/02/20 10/02/20 10/02/20 17:26 17:27 17:31 Temperature Pulse Rate 90 97 H 74 Respiratory Rate Blood Pressure O2 Sat by Pulse 98 93 98 Oximetry 10/02/20 10/02/20 10/02/20 17:33 17:36 17:41 Temperature Pulse Rate 70 77 70 Respiratory Rate Blood Pressure 119/66 O2 Sat by Pulse 92 97 100 Oximetry 10/02/20 10/02/20 10/02/20 17:46 17:49 17:51 Temperature Pulse Rate 72 73 75 Respiratory Rate Blood Pressure 115/67 O2 Sat by Pulse 95 100 Oximetry 10/02/20 10/02/20 10/02/20 17:56 18:00 18:01 Temperature Pulse Rate 75 101 H 71 Respiratory Rate Blood Pressure O2 Sat by Pulse 100 93 100 Oximetry 10/02/20 10/02/20 10/02/20 18:04 18:06 18:11 Temperature Pulse Rate 69 67 74 Respiratory Rate Blood Pressure 119/68 O2 Sat by Pulse 100 100 Oximetry 10/02/20 10/02/20 10/02/20 18:16 18:17 18:21 Temperature Pulse Rate 73 69 75 Respiratory Rate Blood Pressure 113/65 O2 Sat by Pulse 100 99 Oximetry 10/02/20 10/02/20 10/02/20 18:26 18:31 18:32 Temperature Pulse Rate 74 77 67 Respiratory Rate Blood Pressure 102/56 O2 Sat by Pulse 98 100 Oximetry 10/02/20 10/02/20 10/02/20 18:36 18:41 18:46 Temperature Pulse Rate 70 79 73 Respiratory Rate Blood Pressure O2 Sat by Pulse 100 100 100 Oximetry 10/02/20 10/02/20 10/02/20 18:48 18:51 18:56 Temperature Pulse Rate 74 78 72 Respiratory Rate Blood Pressure 89/50 O2 Sat by Pulse 99 100 Oximetry 10/02/20 10/02/20 10/02/20 19:01 19:04 19:06 Temperature Pulse Rate 72 72 66 Respiratory Rate Blood Pressure 109/59 O2 Sat by Pulse 100 100 Oximetry 10/02/20 10/02/20 10/02/20 19:11 19:14 19:15 Temperature 98.0 F Pulse Rate 76 65 Respiratory Rate Blood Pressure 108/57 O2 Sat by Pulse 100 Oximetry 10/02/20 10/02/20 10/02/20 19:16 19:17 19:21 Temperature Pulse Rate 68 75 89 Respiratory Rate Blood Pressure 109/62 O2 Sat by Pulse 100 99 Oximetry 10/02/20 10/02/20 10/02/20 19:26 19:31 19:36 Temperature Pulse Rate 65 69 71 Respiratory Rate Blood Pressure O2 Sat by Pulse 100 100 100 Oximetry 10/02/20 10/02/20 10/02/20 19:38 19:41 19:46 Temperature Pulse Rate 81 87 83 Respiratory Rate Blood Pressure 105/67 O2 Sat by Pulse 100 100 Oximetry 10/02/20 10/02/20 10/02/20 19:51 19:56 20:01 Temperature Pulse Rate 72 73 91 H Respiratory Rate Blood Pressure O2 Sat by Pulse 100 100 100 Oximetry 10/02/20 10/02/20 20:06 20:11 Temperature Pulse Rate 103 H 82 Respiratory Rate Blood Pressure O2 Sat by Pulse 100 100 Oximetry - Exam Breasts: deferred Cardiovascular: Regular rate Lungs: Normal air movement FHR: category 1 Uterine Contraction Monitor Mode: External Cervical Dilatation: 10 (vertex) Cervical Effacement Percentage: 95 station: +1 Uterine Contraction Frequency (min): 2 Uterine Contraction Pattern: Regular Uterine Tone Measurement Phase: Resting Uterine Contraction Intensity: Strong/Firm - Labs Labs: Abnormal Labs 10/01/20 10/02/20 21:40 00:16 RDW 17.8 H 18.1 H Plt Count 139 L 128 L Laboratory Results - last 24 hr 10/01/20 10/01/20 10/01/20 21:40 21:40 21:40 WBC 8.1 RBC 4.11 Hgb 11.7 Hct 33.9 MCV 83 MCH 28 MCHC 34 RDW 17.8 H Plt Count 139 L POC Glucose Syphilis IgG Antibody Nonreactive Blood Type O POSITIVE Antibody Screen Negative 10/01/20 10/02/20 10/02/20 23:22 00:16 12:14 WBC 8.0 RBC 4.19 Hgb 11.5 Hct 35.6 MCV 85 MCH 28 MCHC 32 RDW 18.1 H Plt Count 128 L POC Glucose 76 76 Syphilis IgG Antibody Blood Type Antibody Screen
[2020-10-02] MEDS ORDERED: MAGNESIUM HYDROXIDE (MOM) ORAL LIQD UDC PO PRN (21:28)
[2020-10-02] MEDS ORDERED: LANOLIN/ZINC/DIMETHICONE (LANSINOH) 7 GM TP PRN (21:28)
[2020-10-02] MEDS ORDERED: PROMETHAZINE 25 MG TAB PO PRN (21:28)
[2020-10-02] MEDS ORDERED: ONDANSETRON 4 MG/2 ML INJ IV PRN (21:28)
[2020-10-02] MEDS ORDERED: diphenhydrAMINE 25 MG CAP PO PRN (21:28)
[2020-10-02] MEDS ORDERED: WITCH HAZEL/ GLYCERIN PAD TP PRN (21:28)
--- NOTE | 2020-10-02 21:35 | Procedure Note ---
OB Delivery Note - Delivery Date of Delivery: 10/02/20 (2107) Surgeon: DIANDRA LUCAS (CNM) Estimated blood loss: 300cc - Vaginal Delivery presentation: vertex Delivery position: OA (SAMIR) Delivery induction: cervidil Delivery augmentation: pitocin Delivery monitor: external FHT, external uterine Route of delivery: Delivery placenta: spontaneous (2115, frantz) Delivery cord: 3 umbilical vessels Episiotomy: none Delivery laceration: none, other (left labial abrasions) Anesthesia: epidural Delivery comments: of viable, crying male infant placed directly to maternal abdomen. Cord double clamped, cut by FOB after cessation of pulsation. Cord blood collected and sent to lab. Placenta spontaneously delivered, frantz, disposed per hospit al policy. Uterus firm @ U -2, hemostasis maintained. Perineum intact with left labial abrasion. Mother and baby safe, stable and left in care of RN. - Infant A at 1 minute: 8 at 5 minutes: 9 Gender: Male (Weight: 2962 gms (6lbs 8ozs) 18 inches)
[2020-10-02] MEDS: IBUPROFEN 600 MG TAB PO SCH (23:39)
[2020-10-03] MEDS: IBUPROFEN 600 MG TAB PO SCH ×3 (05:16→17:56)
[2020-10-03] MEDS ORDERED: DIPHtheria,PERTUSSIS(ACELL),TETANUS VACCINE/PF 0.5 ML VIAL IM ONE (06:00)
[2020-10-03] MEDS: oxyCODONE /ACETAMINOPHEN 5-325MG TAB PO PRN ×3 (08:43→21:02)
[2020-10-03 10:57] LABS: Hematocrit 32.1 % (30.3-42.9); Hemoglobin 10.6 gm/dl (10.1-14.3)
[2020-10-03] MEDS ORDERED: medroxyPROGESTERone ACETATE 150 MG/ML SYRINGE IM NR (11:47)
--- NOTE | 2020-10-03 11:47 | Progress Note ---
Assessment and Plan A: Day 1 GDM P: Follow routine orders. GDM diet Desires Depo prior to d/c D/C in the am Subjective - Subjective Date of service: 10/03/20 Principal diagnosis: s/p ; GDM Patient reports: appetite normal, voiding normally, pain well controlled, flatus, ambulating normally [place]: doing well, bottle feeding (and ) Objective - Vital Signs Latest vital signs: Vital Signs Temp Pulse Resp BP Pulse Ox 10/03/20 08:31 97.6 F 70 18 112/77 99 10/03/20 04:47 98.2 F 88 20 100/61 96 10/03/20 04:32 98.0 F 73 20 110/63 99 10/02/20 23:39 18 10/02/20 23:16 90 99 10/02/20 23:11 88 99 10/02/20 23:07 94 H 116/63 10/02/20 23:06 91 H 99 10/02/20 23:01 89 99 10/02/20 22:56 78 99 10/02/20 22:52 88 111/61 10/02/20 22:51 90 98 10/02/20 22:46 74 99 10/02/20 22:41 79 99 10/02/20 22:37 75 108/60 10/02/20 22:36 84 99 10/02/20 22:31 78 100 10/02/20 22:26 69 98 10/02/20 22:22 80 105/56 10/02/20 22:21 81 100 10/02/20 22:16 85 99 10/02/20 22:11 88 100 10/02/20 22:07 82 111/58 10/02/20 22:06 84 99 10/02/20 22:01 85 99 10/02/20 21:56 88 99 10/02/20 21:52 75 109/56 10/02/20 21:51 81 99 10/02/20 21:46 80 99 10/02/20 21:41 81 99 10/02/20 21:37 86 129/70 10/02/20 21:36 74 99 10/02/20 21:31 69 99 10/02/20 21:26 86 98 10/02/20 21:22 81 109/55 10/02/20 21:21 82 98 11/10/20 21:18 82 129/64 20 21:16 82 98 20 21:11 79 99 20 21:06 104 H 99 20 21:01 93 H 100 20 20:58 92 H 116/76 20 20:56 91 H 100 20 20:51 98 H 100 20 20:46 78 100 20 20:41 76 100 20 20:38 74 113/61 20 20:36 78 99 20 20:31 78 100 20 20:26 76 100 20 20:21 94 H 99 10/02/20 20:16 81 100 10/02/20 20:11 82 100 20 20:06 103 H 100 10/02/20 20:01 91 H 100 10/02/20 19:56 73 100 10/02/20 19:51 72 100 10/02/20 19:46 83 100 10/02/20 19:41 87 100 20 19:38 81 105/67 20 19:36 71 100 20 19:31 69 100 10/02/20 19:26 65 100 10/02/20 19:21 89 99 10/02/20 19:17 75 109/62 10/02/20 19:16 68 100 10/02/20 19:15 98.0 F 10/02/20 19:14 65 108/57 10/02/20 19:11 76 100 10/02/20 19:06 66 100 20 19:04 72 109/59 10/02/20 19:01 72 100 20 18:56 72 100 20 18:51 78 99 20 18:48 74 89/50 20 18:46 73 100 20 18:41 79 100 20 18:36 70 100 20 18:32 67 102/56 20 18:31 77 100 20 18:26 74 98 20 18:21 75 99 20 18:17 69 113/65 10/02/20 18:16 73 100 10/02/20 18:11 74 100 10/02/20 18:06 67 100 10/02/20 18:04 69 119/68 10/02/20 18:01 71 100 10/02/20 18:00 101 H 93 10/02/20 17:56 75 100 10/02/20 17:51 75 100 10/02/20 17:49 73 115/67 10/02/20 17:46 72 95 10/02/20 17:41 70 100 10/02/20 17:36 77 97 10/02/20 17:33 70 119/66 92 10/02/20 17:31 74 98 10/02/20 17:27 97 H 93 10/02/20 17:26 90 98 10/02/20 17:21 84 97 10/02/20 17:17 100 H 111/63 10/02/20 17:16 97 H 98 10/02/20 17:11 70 114/56 97 10/02/20 17:07 100 H 86/51 94 10/02/20 17:06 87 95 10/02/20 17:01 89 92/50 96 10/02/20 16:56 86 97/53 96 10/02/20 16:51 91 H 94/55 96 10/02/20 16:49 85 98/56 10/02/20 16:46 77 97 10/02/20 16:45 80 100/60 10/02/20 16:42 76 94/53 10/02/20 16:41 81 96 10/02/20 16:39 79 93/54 10/02/20 16:36 81 111/59 97 10/02/20 16:33 74 87/49 10/02/20 16:31 72 97 10/02/20 16:30 72 82/46 10/02/20 16:27 74 87/51 10/02/20 16:26 72 97 10/02/20 16:24 74 96/51 10/02/20 16:21 71 101/56 98 10/02/20 16:18 69 100/57 10/02/20 16:16 84 97 10/02/20 16:15 70 110/56 10/02/20 16:12 64 110/61 10/02/20 16:11 64 97 10/02/20 16:09 70 119/65 10/02/20 16:06 61 99 10/02/20 16:01 87 100 10/02/20 15:56 70 98 10/02/20 15:51 70 100 10/02/20 15:46 98.2 F 63 20 99 10/02/20 15:45 70 119/70 10/02/20 15:41 79 98 10/02/20 15:30 64 99 10/02/20 15:25 92 H 97 10/02/20 15:20 68 98 10/02/20 15:15 64 97 10/02/20 15:10 68 99 10/02/20 15:05 71 98 10/02/20 15:00 69 98 10/02/20 14:55 73 98 10/02/20 14:50 71 97 10/02/20 14:46 65 120/71 10/02/20 14:45 87 97 10/02/20 14:35 76 98 10/02/20 14:30 67 98 10/02/20 14:25 77 97 10/02/20 14:20 70 97 10/02/20 14:15 79 111/64 98 10/02/20 14:10 78 97 10/02/20 14:05 79 97 10/02/20 14:00 75 97 10/02/20 13:55 80 98 10/02/20 13:50 86 99 10/02/20 13:45 82 98 10/02/20 13:40 83 115/65 98 10/02/20 12:22 72 100 10/02/20 12:17 82 97 10/02/20 12:12 81 98 10/02/20 12:07 92 H 97 10/02/20 12:02 85 97 10/02/20 11:57 63 98 10/02/20 11:52 70 99 10/02/20 11:47 71 98 Intake and Output 10/02/20 10/03/20 10/03/20 22:59 06:59 14:59 Intake Total 1079.133 240 Output Total 800 900 500 Balance 279.133 -546 -500 Intake: IV 1079.133 AMPICILLIN/NS 1 GM/50 ML 50 1 gm In 50 ml @ 100 mls/ hr IV Q4HR [facility] Rx#: [id number] Lactated Ringers 1,000 ml 1000 @ 125 mls/hr IV DIRECT [facility] Rx#:[id number] PITOCin/NS 30 UNIT/500ML 29.133 30 units In 500 ml @ 2 MILLIUNITS/MIN 2 mls/hr IV TITR [facility] Rx#:[id number] Oral 240 Output: Urine 800 900 500 Indwelling Catheter 600 Uretheral (Cifuentes) 200 Void 900 500 Other: Total, Intake Amount 240 Total, Output Amount 600 300 500 # Voids Void 1 Estimated Blood Loss 300 - Exam Breasts: Present: normal Cardiovascular: Present: Regular rate, Normal S1, Normal S2 Lungs: Present: Clear to auscultation, Normal air movement Abdomen: Present: normal appearance, soft, normal bowel sounds Uterus: Present: normal, firm, fundal height below umbilicus Extremities: Present: normal - Labs Labs: Abnormal lab results 10/03/20 10/03/20 Range/Units 08:53 10:16 POC Glucose 46 L 116 H (70-105) mg/dL
--- NOTE | 2020-10-03 11:52 | Discharge Summary ---
Providers - Providers Date of Admission: 10/01/20 20:25 Date of discharge: 10/04/20 Attending physician: MATTHEW FOOTE JR, MD 10/02/20 21:29 Consult to Six Sigma Project Manager [CONS] Routine Reason For Exam: assistance with , SNS Primary care physician: MATTHEW FOOTE JR, MD Hospitalization Reason for admission: induction of labor Delivery: Episiotomy: none Laceration: other (left labial abrasions) Other procedures: none complications: none Discharge diagnosis: IUP at term delivered [place] baby: male Condition at discharge: Good Disposition: DC-01 TO HOME OR SELFCARE Plan - Provider Discharge Summary Activity: routine, no sex for 6 weeks, no heavy lifting 4 weeks, no strenuous exercise Diet: other (GDM diet) Instructions: routine Additional instructions: [] Smoking cessation referral if applicable(refer to patient education folder for contact #) [] Refer to [facility] Book[facility] Call your doctor immediately for: * Fever > 100.5 * Heavy vaginal bleeding ( >1 pad per hour) * Severe persistent headache * Shortness of breath * Reddened, hot, painful area to leg or breast * Drainage or odor from incision. * Keep incision clean and dry at all times and follow doctor's instructions regarding bathing/showering - Follow up plan Follow up: MATTHEW FOOTE JR, MD [Primary Care Provider] - 6 Weeks
[2020-10-03] MEDS: PRENATAL VIT27-FE FUMARATE-FOLIC ACID VIT TAB PO SCH (12:15)
--- NOTE | 2020-10-03 18:24 | Post Anesthesia Evaluation ---
- Post Anesthesia Evaluation Patient Participated: Yes Airway Patent: Yes Stable Respiratory Function: Yes Nausea/Vomiting: No Temp > 96.8F: Yes Pain Manageable: Yes Adequeate Hydration: Yes Anesthesia Complications: No Block Receding Appropriately: Yes
[2020-10-04] MEDS: IBUPROFEN 600 MG TAB PO SCH ×2 (01:06→07:28)
[2020-10-04] MEDS: oxyCODONE /ACETAMINOPHEN 5-325MG TAB PO PRN (11:25)
[2020-10-04] MEDS: PRENATAL VIT27-FE FUMARATE-FOLIC ACID VIT TAB PO SCH (11:25)
--- NOTE | 2020-10-04 11:55 | Consultation ---
History of Present Illness - Reason for Consult Consult date: 10/04/20 Reason for consult: anxiety - History of Present Psychiatric Illness Lila Kilgore is a 24y/o female who was admitted for childbirth. She is a/o x 3. She is calm, cooperative and polite. Her spouse is at bedside. She gives me permission to speak in front of him. She says she has a history of anxiety and normally takes buspar. The patient says she's been off of it since getting . She says she was given it by her outside industrial sales representative. The patient denies ever seeing a psychiatrist, or any psych history outside of anxiety. She denies SI/HI or ever being. She denies any fear or feelings of endangerment. The patient denies hallucinations of any kind. She denies illicit drug use, alcohol or nicotine. PAST PSYCHIATRIC HISTORY: Diagnoses: Anxiety Suicide attempts or Self-harm behavior: Denies Prior psychiatric hospitalizations: Denies Substance Abuse history: Denies Previous psychiatric medications tried: Buspar Outpatient treatment: Denies PAST MEDICAL HISTORY: None reported Family Psychiatric History: None reported SOCIAL HISTORY Marital Status: Living Arrangements: with family Employment Status: unemployed Access to guns/weapons: yes, but kept up Education: High school diploma History of Abuse: Denies Legal History: Denies ROS: Constitutional: Negative for weight loss ENT: Negative for stridor Respiratory: Negative for cough or hemoptysis All other systems reviewed and are negative MENTAL STATUS EXAMINATION General Appearance and Behavior: Age appropriate, good hygiene, wearing appropriate clothes, good eye contact, cooperative polite with questioning. Cooperation: Participating Psychomotor Behavior: Normal Mood: Depressed Affect and affective range: congruent with stated mood Thought Process: Goal oriented Thought Content: none Speech: Normal volume, Regular rate and rhythm Suicidal Ideation: Denies Homicidal Ideation: Denies Hallucinations: Denies Delusions: None elicited Insight and Judgment: Normal Memory: Normal Attention: Normal Orientation: Alert, oriented, anxious Assessment and Plan Generalized Anxiety Disorder, by history TREATMENT PLAN No scripts given The patient to establish outpatient psychiatry Sitter: defer to primary Medical: Per primary Disposition: Do not recommend acute inpatient psychiatric treatment The interlocking pavement installer to give the patient resources to establish outpatient psychiatry and therapy Will sign off. Thank you for this consult. Medications and Allergies Allergies Allergy/AdvReac Type Severity Reaction Status Date / Time No Known Allergies Allergy Verified 09/08/18 08:18 Home Medications Medication Instructions Recorded Confirmed Last Taken Type No.137/Iron/Folic Acd 1 each PO QDAY 30 Days #30 tablet 09/05/18 10/02/20 10/01/20 Rx [ Vitamin Tablet] Colace CAP 1 tab PO BID 10/02/20 10/02/20 10/01/20 History Active Meds: Active Medications Bisacodyl (Dulcolax) 10 mg HI BID PRN PRN Reason: Constipation Diphenhydramine HCl (Benadryl) 25 mg PO Q6H PRN PRN Reason: Itching Ibuprofen (Ibuprofen) 600 mg PO Q6HR [facility] Last Admin: 10/04/20 07:28 Dose: 600 mg Documented by: Magnesium Hydroxide (Milk Of Magnesia) 30 ml PO HS PRN PRN Reason: Constipation Multi-Ingredient Ointment (Lansinoh) 1 applic TP PRN PRN PRN Reason: Sore Nipples Multivitamins/Iron/Calcium ( Vitamin) 1 each PO QDAY [facility] Last Admin: 10/04/20 11:25 Dose: 1 each Documented by: Ondansetron HCl (Zofran) 4 mg IV Q8H PRN PRN Reason: Nausea And Vomiting Oxycodone/Acetaminophen (Percocet 5/325) 1 tab PO Q6H PRN PRN Reason: Pain, Moderate (4-6) Last Admin: 10/04/20 11:25 Dose: 1 tab Documented by: Promethazine HCl (Phenergan) 25 mg PO Q6H PRN PRN Reason: Nausea And Vomiting Sodium Chloride (Sodium Chloride Flush Syringe 10 Ml) 10 ml IV PRN PRN PRN Reason: LINE FLUSH Witch Yarely/Glycerin (Tucks Pad) 1 each TP PRN PRN PRN Reason: Hemorrhoid/cleansing/soothing Mental Status Exam - Vital signs Last Vital Signs Temp 98.8 F 10/04/20 08:20 Pulse 70 10/04/20 08:20 Resp 18 10/04/20 08:20 BP 105/66 10/04/20 08:20 Pulse Ox 98 10/04/20 08:20 Results Result Diagrams: 10/03/20 10:17 All other labs normal.
[2020-10-04 16:00] VITALS: BP 112/70
== END 2020-10-04 14:15 | disposition home or self-care (01) | DRG 775 ==
LOC: LD 20:25 → OB 10-02 23:51
PROVIDERS: ADMIT Obstetrics & Gynecology; ATTEND Obstetrics & Gynecology
PROC: 3E0P7VZ Introduction of Hormone into Female Reproductive, Via Natural or Artificial Opening (ICD-10-PCS; 2020-10-01)
PROC: 10E0XZZ Delivery of Products of Conception, External Approach (ICD-10-PCS; principal; 2020-10-02)
PROC: 3E0R3BZ Introduction of Anesthetic Agent into Spinal Canal, Percutaneous Approach (ICD-10-PCS; 2020-10-02)
PROC: 00HU33Z Insertion of Infusion Device into Spinal Canal, Percutaneous Approach (ICD-10-PCS; 2020-10-02)
PROC: 10907ZC Drainage of Amniotic Fluid, Therapeutic from Products of Conception, Via Natural or Artificial Opening (ICD-10-PCS; 2020-10-02)
PROC: 3E0234Z Introduction of Serum, Toxoid and Vaccine into Muscle, Percutaneous Approach (ICD-10-PCS; 2020-10-03)
DX: O24.420 Gestational diabetes mellitus in childbirth, diet controlled (principal); Z3A.39 39 weeks gestation of pregnancy; Z37.0 Single live birth; O99.214 Obesity complicating childbirth; O99.824 Streptococcus B carrier state complicating childbirth; E66.01 Morbid (severe) obesity due to excess calories; Z20.828 Contact with and (suspected) exposure to other viral communicable diseases; Z23 Encounter for immunization; O99.284 Endocrine, nutritional and metabolic diseases complicating childbirth; E03.9 Hypothyroidism, unspecified; O99.344 Other mental disorders complicating childbirth; F41.1 Generalized anxiety disorder
CPT/HCPCS: 36415; 59200; 82962; 85014; 85018; 85027; 86592; 86850; 86900; 86901; 90715; G0378; J0290; J1050; J2590; J7120; U0003

== ENCOUNTER 2021-08-06 13:51 | Emergency (ER) | payer MEDICAID ==
--- NOTE | 2021-08-06 17:23 | Cat Scan Report ---
CT head/brain wo con INDICATION: headache. TECHNIQUE: Routine CT head. All CT scans at this location are performed using CT dose reduction for A TESS by means of automated exposure control. COMPARISON: None. FINDINGS: Intracranial: Leyva-white matter differentiation is maintained. No intracranial hemorrhage. No extra a xial collection. No hydrocephalus. No herniation. Sinuses: Paranasal sinuses and mastoid air cells are essentially clear. Orbits: Globes are intact. Calvarium: No acute fracture. IMPRESSION: 1. No acute intracranial abnormality. Signer Name: Liam Del Valle MD Signed: 08/06/2021 5:19 PM Workstation Name: [id number]
[2021-08-06 17:29] LABS: Basophils # (Auto) 0.1 K/mm3 (0.0-0.1); Basophils % (Auto) 0.5 % (0.0-1.8); Eosinophils # (Auto) 0.1 K/mm3 (0.0-0.4); Eosinophils % (Auto) 1.2 % (0.0-4.3); Hematocrit 38.2 % (30.3-42.9); Hemoglobin 12.1 gm/dl (10.1-14.3); Lymphocytes # (Auto) 1.5 K/mm3 (1.2-5.4); Lymphocytes % (Auto) 13.1 % (13.4-35.0); Mean Corpuscular HGB Conc 32 % (30-34); Mean Corpuscular Volume 80 fl (79-97); Monocytes # (Auto) 0.5 K/mm3 (0.0-0.8); Monocytes % (Auto) 4.6 % (0.0-7.3); Platelet Count 208 K/mm3 (140-440); Red Blood Count 4.79 M/mm3 (3.65-5.03); Red Cell Distribution Width 17.9 % (13.2-15.2)
[2021-08-06 17:37] VITALS: BP 105/56
[2021-08-06 17:42] LABS: Alanine Aminotransferase 35 units/L (7-56); Albumin 4.6 g/dL (3.9-5); Blood Urea Nitrogen 12 mg/dL (7-17); Calcium 9.2 mg/dL (8.4-10.2); Hemolysis Index 2
[2021-08-06 17:49] LABS: BUN/Creatinine Ratio 20
--- NOTE | 2021-08-06 18:10 | XRay Report ---
CHEST 2 VIEWS INDICATION: Syncope. COMPARISON: None. FINDINGS: Support devices: None. Heart: Within normal limits. Lungs/Pleura: No acute air space or interstitial disease. No significant pleural effusion. IMPRESSION: No acute findings. Signer Name: Jonnie Goodson MD Signed: 08/06/2021 6:05 PM Workstation Name: [id number]
--- NOTE | 2021-08-06 20:22 | Emergency Department Report ---
ED Syncope HPI - General Chief Complaint: Syncope Stated Complaint: FAINTED, HEAD PAIN, NECK PAIN Time Seen by Provider: 08/06/21 16:38 Source: patient - History of Present Illness Initial Comments: 25-year-old female [facility] emerge department complaining of a spontaneous syncopal episode. States she had got up from a chair and walked over to the kitchen to do a few dishes and and then grew faint and the caught her and set her down in a chair when symptoms was resumed to normal. She thinks he may have been out for a few seconds but reports no headache, no nausea, no vomiting, no chest pain, no fever, chills, sweats. No hemoptysis no hematemesis hematochezia Timing/Prior Episodes: no prior history, remote history Precipitating Factors: Positive: none Loss of Consciousness: no loss of consciousness Current Symptoms: back to normal - Related Data Allergies/Adverse Reactions: Allergies No Known Allergies Allergy (Verified 08/06/21 16:26) Home Medications: Ambulatory Orders No.137/Iron/Folic Acd [ Vitamin Tablet] 1 each PO QDAY 30 Days #30 tablet 09/05/18 Colace CAP 1 tab PO BID 10/02/20 ED Review of Systems ROS: Stated complaint: FAINTED, HEAD PAIN, NECK PAIN Other details as noted in HPI Comment: All other systems reviewed and negative ED Past Medical Hx - Past Medical History Hx Hypertension: No Hx Heart Attack/AMI: No Hx Congestive Heart Failure: No Hx Diabetes: No Hx Deep Vein Thrombosis: No Hx Liver Disease: No Hx Renal Disease: No Hx Sickle Cell Disease: No Hx Seizures: No Hx Asthma: No Hx COPD: No Hx HIV: No Additional medical history: Miscarriage 2014 - Surgical History Past Surgical History?: No Hx Pacemaker: No Hx Internal Defibrillator: No - Social History Smoking Status: Never Smoker Substance Use Type: None - Medications Home Medications: Home Medications Medication Instructions Recorded Confirmed Last Taken Type No.137/Iron/Folic Acd 1 each PO QDAY 30 Days #30 tablet 09/05/18 10/02/20 10/01/20 Rx [ Vitamin Tablet] Colace CAP 1 tab PO BID 10/02/20 10/02/20 10/01/20 History ED Physical Exam - General Limitations: No Limitations General appearance: alert, in no apparent distress - Head Head exam: Present: atraumatic, normocephalic - Eye Eye exam: Present: normal appearance, PERRL, EOMI. Absent: nystagmus Pupils: Present: normal accommodation - ENT ENT exam: Present: normal exam, normal orophraynx, mucous membranes moist, TM's normal bilaterally - Neck Neck exam: Present: normal inspection, full ROM. Absent: tenderness, meningismus, lymphadenopathy, thyromegaly - Respiratory Respiratory exam: Present: normal lung sounds bilaterally. Absent: respiratory distress - Cardiovascular Cardiovascular Exam: Present: regular rate, normal rhythm. Absent: systolic murmur, diastolic murmur, rubs, gallop - GI/Abdominal GI/Abdominal exam: Present: soft, normal bowel sounds - Extremities Exam Extremities exam: Present: normal inspection, full ROM, normal capillary refill - Back Exam Back exam: Present: normal inspection - Neurological Exam Neurological exam: Present: alert, oriented X3, CN II-XII intact, normal gait - Expanded Neurological Exam Expanded Neurological exam: Absent: innattentive, memory loss-remote event, expressive aphasia, total aphasia Patient oriented to: Present: person, place, time Speech: Present: fluid speech Cranial nerves: EOM's Intact: Normal, Gag Reflex: Normal, Nystagmus: Normal Cerebellar function: Finger to Nose: Normal, Heel to [place]: Normal, Romberg: Normal Upper motor neuron: Moy Neglect: Normal, Pronator Drift: Normal, Babinski Sign: Normal Best Eye Response (Annabel): (4) open spontaneously Best Motor Response (Annabel): (6) obeys commands Best Verbal Response ([place]): (5) oriented [place] Total: 15 - Psychiatric Psychiatric exam: Present: normal affect, normal mood - Skin Skin exam: Present: warm, dry, intact, normal color. Absent: rash ED Course Vital Signs 08/06/21 08/06/21 16:22 17:33 Temperature 98.9 F Pulse Rate 107 H Pulse Rate [ 66 Lying] Blood Pressure 129/77 Blood Pressure 105/56 [Lying] ED Medical Decision Making - Lab Data Result diagrams: 08/06/21 16:54 08/06/21 16:54 Lab Results 08/06/21 08/06/21 08/06/21 Range/Units 16:54 16:54 16:54 WBC 11.0 (4.5-11.0) K/mm3 RBC 4.79 (3.65-5.03) M/mm3 Hgb 12.1 (10.1-14.3) gm/dl Hct 38.2 (30.3-42.9) % MCV 80 (79-97) fl MCH 25 L (28-32) pg MCHC 32 (30-34) % RDW 17.9 H (13.2-15.2) % Plt Count 208 (140-440) K/mm3 Lymph % (Auto) 13.1 L (13.4-35.0) % Gaines % (Auto) 4.6 (0.0-7.3) % Eos % (Auto) 1.2 (0.0-4.3) % Baso % (Auto) 0.5 (0.0-1.8) % Lymph # (Auto) 1.5 (1.2-5.4) K/mm3 Gaines # (Auto) 0.5 (0.0-0.8) K/mm3 Eos # (Auto) 0.1 (0.0-0.4) K/mm3 Baso # (Auto) 0.1 (0.0-0.1) K/mm3 Seg Neutrophils % 80.6 H (40.0-70.0) % Seg Neutrophils # 8.9 H (1.8-7.7) K/mm3 Sodium 139 (137-145) mmol/L Potassium 4.3 (3.6-5.0) mmol/L Chloride 104.5 (98-107) mmol/L Carbon Dioxide 25 (22-30) mmol/L Anion Gap 14 mmol/L BUN 12 (7-17) mg/dL Creatinine 0.6 (0.6-1.2) mg/dL Estimated GFR > 60 ml/min BUN/Creatinine Ratio 20 % Glucose 88 (65-100) mg/dL Calcium 9.2 (8.4-10.2) mg/dL Magnesium 2.10 (1.7-2.3) mg/dL Total Bilirubin 0.30 (0.1-1.2) mg/dL AST 29 (5-40) units/L ALT 35 (7-56) units/L Alkaline Phosphatase 82 (35-129) units/L Total Protein 7.9 (6.3-8.2) g/dL Albumin 4.6 (3.9-5) g/dL Albumin/Globulin Ratio 1.4 % HCG, Qual Negative (Negative) - Radiology Data Radiology results: report reviewed [facility] [address] [place] [address] Cat Scan Report Signed Patient: MECCA ROWLAND MR#: [id number] : 1995 Acct:[id number] Age/Sex: 25 / F ADM Date: 08/06/21 Loc: ED Attending Dr: Ordering Physician: TONJA JEAN BAPTISTE Date of Service: 08/06/21 Procedure(s): CT head/brain wo con Accession Number(s): [id number] cc: TONJA JEAN BAPTISTE CT head/brain wo con INDICATION: headache. TECHNIQUE: Routine CT head. All CT scans at this location are performed using CT dose reduction for ALARA by means of automated exposure control. COMPARISON: None. FINDINGS: Intracranial: Leyva-white matter differentiation is maintained. No intracranial hemorrhage. No extra axial collection. No hydrocephalus. No herniation. Sinuses: Paranasal sinuses and mastoid air cells are essentially clear. Orbits: Globes are intact. Calvarium: No acute fracture. IMPRESSION: 1. No acute intracranial abnormality. Signer Name: Liam Del Valle MD Signed: 08/06/2021 5:19 PM Workstation Name: [id number] Transcribed By: CS Dictated By: Liam Del Valle MD Electronically Authenticated By: Liam Del Valle MD Signed Date/Time: 08/06/211718 DD/ 17 TD/TT: - Medical Decision Making This 25-year-old female patient presents with symptoms consistent with syncope, most likely due to vasovagal response. Differential diagnosis includes stroke, TIA, migraine palsy, seizure disorder reflux cyst syncope. Low suspicion for orthostatic syncope given lack of dehydration, no evidence of acute life- threatening hemorrhage. Presentation not consistent with seizures given short course, no postictal state, no seizure activity. Low suspicion for acute neur ologic catastrophe is to include intracranial cranial hemorrhage given lack of trauma, risk factors for bleeding diathesis. Low suspicion for vascular catastrophe to include PE, thoracic aortic dissection, AAA rupture. The presentation consistent not consistent with acute life-threatening arrhythmia, structural heart disease, electrical conduction abnormalities or ACS. Critical care attestation.: If time is entered above; I have spent that time in minutes in the direct care of this critically ill patient, excluding procedure time. ED Disposition Clinical Impression: Syncope Disposition: 01 HOME / SELF CARE / HOMELESS Is pt being admited?: No Does the pt Need Aspirin: No Condition: Stable Instructions: Syncope (ED), Near-Syncope Additional Instructions: You have been seen in the emergency department a few simple episode. Evaluate did not show any evidence of any medical conditions requiring emergent intervention at this time however recommend you follow-up with your primary care provider for further testing as an outpatient. Please follow-up with your primary care doctor in 2 to 3 days but you may return to emergency department immediately for worsening or uncontrolled symptoms, headache, chest pain, shortness of breath, persistent vomiting, vision changes, recurrent fainting or any other symptoms suggesting that your condition is worsening Referrals: PRIMARY CARE, [Primary Care Provider] - 3-5 Days JOHNNY YOUNG MD [Staff Physician] - 3-5 Days
--- NOTE | 2021-08-07 10:11 | Electrocardiograph Report ---
[facility] Test Date: 2021-08-06 Test Time: 17:29:09 Pat Name: MECCA ROWLAND Department: Room: Gender: F Math Teacher: RASTA : 1995 Requested By: ABIEL DENNEY Order Number: [id number] Reading MD: Harjeet Beckett Measurements Intervals [place] Rate: 62 P: 51 NM: 194 QRS: 66 QRSD: 95 T: 52 QT: 381 QTc: 386 Interpretive Statements Sinus rhythm ST elev, probable normal early repol pattern No previous ECG available for comparison Electronically Signed On 08-07-2021 10:11:02 EDT by Harjeet Beckett
== END 2021-08-06 22:28 | disposition home or self-care (01) ==
LOC: ED 13:51
DX: R55 Syncope and collapse (principal)
CPT/HCPCS: 36415; 70450; 71046; 80053; 83735; 84703; 85025; 93005; 99284

== ENCOUNTER 2021-12-01 16:13 | Emergency (ER) | payer MEDICAID ==
[2021-12-01] MEDS ORDERED: MORPHINE 4 MG/1 ML INJ IV ONE (21:33)
[2021-12-01] MEDS ORDERED: ONDANSETRON 4 MG/2 ML INJ IV ONE (21:33)
[2021-12-01] MEDS ORDERED: FAMOTIDINE 20 MG/2 ML INJ IV ONE (21:34)
[2021-12-01] MEDS ORDERED: SODIUM CHLORIDE 0.9% 1000 ML 1,000 ML IV ONE (21:34)
--- NOTE | 2021-12-01 21:51 | Emergency Department Report ---
HPI - General Chief Complaint: Abdominal Pain - HPI HPI: MSE 7 The patient is a 26-year-old female present with a chief complaint of abdominal pain. The patient states that she developed lower abdominal pain today at 1430 described as sharp and constant in nature. Patient states the pain began in the lower abdomen but then radiated to the diffuse abdomen and back. Patient denies nausea/vomiting but admits to slight diarrhea today. Patient denies history of fever. Patient denies dysuria, hematuria or vaginal discharge. Patient's LMP was 11/08/2021 and she states it was slightly shorter than normal. Patient states she is taking control ED Past Medical Hx - Past Medical History Additional medical history: Miscarriage 2014 - Family History Family history: no significant - Social History Smoking Status: Never Smoker Substance Use Type: None (Denies illicit drug) - Medications Home Medications: Home Medications Medication Instructions Recorded Confirmed Last Taken Type No.137/Iron/Folic Acd 1 each PO QDAY 30 Days #30 tablet 09/05/18 10/02/20 10/01/20 Rx [ Vitamin Tablet] Colace CAP 1 tab PO BID 10/02/20 10/02/20 10/01/20 History Ibuprofen [Motrin 800 MG tab] 800 mg PO Q8HR PRN #20 tablet 12/02/21 Unknown Rx traMADoL [Ultram] 50 mg PO Q6HR PRN #10 tablet 12/02/21 Unknown Rx ED Review of Systems ROS: Stated complaint: ABD PAIN Other details as noted in HPI Constitutional: denies: fever Eyes: denies: eye pain ENT: denies: throat pain Respiratory: no symptoms reported Cardiovascular: denies: chest pain Endocrine: no symptoms reported Gastrointestinal: abdominal pain, diarrhea. denies: nausea, vomiting Genitourinary: denies: dysuria, hematuria, discharge Musculoskeletal: back pain Neurological: denies: headache Physical Exam - Physical Exam Vital Signs: Vital Signs 12/01/21 17:39 Temperature 98.3 F Pulse Rate 59 L Respiratory 20 Rate Blood Pressure 117/65 O2 Sat by Pulse 100 Oximetry Physical Exam: GENERAL: The patient is well-developed well-nourished female lying on stretcher not appearing to be in acute distress. [] HEENT: Normocephalic. Atraumatic. Extraocular motions are intact. Patient has moist mucous membranes. NECK: Supple. Trachea midline CHEST/LUNGS: Clear to auscultation. There is no respiratory distress noted. HEART/CARDIOVASCULAR: Regular. There is no tachycardia. There is no gallop rub or murmur. ABDOMEN: Abdomen is soft, with diffuse tenderness to palpation everywhere except the epigastric region. There is no rebound or guard. Patient has normal bowel sounds. There is no abdominal distention. SKIN: There is no rash. There is no edema. There is no diaphoresis. NEURO: The patient is awake, alert, and oriented. The patient is cooperative. The patient has no focal neurologic deficits. The patient has normal speech. GCS 15 MUSCULOSKELETAL: There is mild CVA tenderness bilateral. There is no evidence of acute injury. ED Course Vital Signs 12/01/21 17:39 Temperature 98.3 F Pulse Rate 59 L Respiratory 20 Rate Blood Pressure 117/65 O2 Sat by Pulse 100 Oximetry ED Medical Decision Making - Lab Data Result diagrams: 12/01/21 21:36 12/01/21 21:36 - Radiology Data Radiology results: report reviewed (CT abdomen pelvis), image reviewed (CT abdomen pelvis) [place] [address] Cat Scan Report Signed Patient: MECCA ROWLAND MR#: [id number] : 1995 Acct:[id number] Age/Sex: 26 / F ADM Date: 12/01/21 Loc: ED Attending Dr: Ordering Physician: TONJA PETERSON Date of Service: 12/01/21 Procedure(s): CT abdomen pelvis w con Accession Number(s): [id number] cc: TONJA PETERSON CT ABDOMEN AND PELVIS WITH CONTRAST HISTORY: RLQ abdominal pain. COMPARISON: None. TECHNIQUE: CT images of the abdomen and pelvis were obtained following administration of intravenous contrast. All CT scans at this location are performed using CT dose reduction for ALARA by means of automated exposure control. CONTRAST: 100 ml of intravenous contrast administered. FINDINGS: Lungs/bones: Lung bases are clear. No acute osseous abnormality or significant degenerative change identified. Abdomen/pelvis: There is mild hepatic steatosis. The gallbladder, spleen, pancreas, adrenals, kidneys, and proximal GI tract appear unremarkable. Urinary bladder is unremarkable. An IUD is positioned in the endometrial canal. Trace pelvic free fluid is likely physiologic for a woman of this age. No acute colonic abnormality. The appendix and terminal ileum appear normal. Mildly complex right ovarian cyst is present which is most likely functional in a woman of this age and measures approximately 2.3 cm. IMPRESSION: 1. Probable functional right ovarian cyst. This could be followed up with pelvic ultrasound as clinically indicated. Otherwise nothing acute. Signer Name: Masood Eugene MD Signed: 12/01/2021 11:54 PM Workstation Name: [id number] Transcribed By: JOSH Dictated By: Masood Eugene MD Electronically Authenticated By: Masood Eugene MD Signed Date/Time: 12/01/212353 DD/ 50 TD/TT: Print Cancel - Differential Diagnosis Gastritis, UTI, pyelonephritis, appendicitis, Critical care attestation.: If time is entered above; I have spent that time in minutes in the direct care of this critically ill patient, excluding procedure time. ED Disposition Clinical Impression: Acute abdominal pain, Right ovarian cyst Disposition: HOME / SELF CARE / HOMELESS Is pt being admited?: No Does the pt Need Aspirin: No Condition: Stable Instructions: Abdominal Pain (ED), Ovarian Cyst, [id number], Abdominal Pain, Adult Additional Instructions: Return to the emergency department should you develop worsening symptoms, inability to tolerate food or liquids, high fever or any other concerns Prescriptions: Ibuprofen [Motrin 800 MG tab] 800 mg PO Q8HR PRN #20 tablet PRN Reason: Pain, Moderate (4-6) traMADoL [Ultram] 50 mg PO Q6HR PRN #10 tablet PRN Reason: Pain
[2021-12-01 22:02] LABS: Basophils # (Auto) 0.1 K/mm3 (0.0-0.1); Basophils % (Auto) 0.8 % (0.0-1.8); Eosinophils # (Auto) 0.3 K/mm3 (0.0-0.4); Eosinophils % (Auto) 3.9 % (0.0-4.3); Hematocrit 36.6 % (30.3-42.9); Hemoglobin 11.3 gm/dl (10.1-14.3); Lymphocytes # (Auto) 2.1 K/mm3 (1.2-5.4); Lymphocytes % (Auto) 23.2 % (13.4-35.0); Mean Corpuscular HGB Conc 31 % (30-34); Mean Corpuscular Volume 76 fl (79-97); Monocytes # (Auto) 0.6 K/mm3 (0.0-0.8); Monocytes % (Auto) 7.1 % (0.0-7.3); Platelet Count 206 K/mm3 (140-440); Red Blood Count 4.84 M/mm3 (3.65-5.03); Red Cell Distribution Width 17.7 % (13.2-15.2)
[2021-12-01 22:22] LABS: Alanine Aminotransferase 40 units/L (7-56); Albumin 4.6 g/dL (3.9-5); Blood Urea Nitrogen 10 mg/dL (7-17); Calcium 9.3 mg/dL (8.4-10.2); Hemolysis Index 16
[2021-12-01 22:25] LABS: BUN/Creatinine Ratio 20
--- NOTE | 2021-12-01 23:58 | Cat Scan Report ---
CT ABDOMEN AND PELVIS WITH CONTRAST HISTORY: RLQ abdominal pain. COMPARISON: None. TECHNIQUE: CT images of the abdomen and pelvis were obtained following administration of intravenous contrast. All CT scans at this location are performed using CT dose reduction for ALARA by means of automated exposure control. CONTRAST: 100 ml of intravenous contrast administered. FINDINGS: Lungs/bones: Lung bases are clear. No acute osseous abnormality or significant degenerative change i dentified. Abdomen/pelvis: There is mild hepatic steatosis. The gallbladder, spleen, pancreas, adrenals, kidney s, and proximal GI tract appear unremarkable. Urinary bladder is unremarkable. An IUD is positioned in the endometrial canal. Trace pelvic free flu id is likely physiologic for a woman of this age. No acute colonic abnormality. The appendix and term inal ileum appear normal. Mildly complex right ovarian cyst is present which is most likely functiona l in a woman of this age and measures approximately 2.3 cm. IMPRESSION: 1. Probable functional right ovarian cyst. This could be followed up with pelvic ultrasound as clinic ally indicated. Otherwise nothing acute. Signer Name: Masood Eugene MD Signed: 12/01/2021 11:54 PM Workstation Name: [id number]
[2021-12-02 02:00] LABS: Bilirubin,Urine NEG (Negative); Blood,Urine NEG (Negative); Color,Urine Yellow (Yellow); Mucus,Urine 1+ /HPF; Protein,Urine <15 mg/dL mg/dL (Negative); Urobilinogen,Urine < 2.0 mg/dL (<2.0)
[2021-12-02 02:37] LABS: RBC,Urine < 1.0 /HPF (0.0-6.0)
[2021-12-02 02:59] VITALS: BP 118/77
== END 2021-12-02 02:59 | disposition home or self-care (01) ==
LOC: ED 16:13
DX: R10.9 Unspecified abdominal pain (principal); N83.201 Unspecified ovarian cyst, right side
CPT/HCPCS: 36415; 74177; 80053; 81001; 83690; 84703; 85025; 96361; 96374; 96375; 99284; J2270; J2405; J3490; J7030; Q9967; Q0162

== ENCOUNTER 2022-02-25 06:11 | Emergency (ER) | payer MEDICAID ==
[2022-02-25 07:09] VITALS: BP 142/84
[2022-02-25 08:36] LABS: HCG Qualitative,Urine Negative (Negative)
[2022-02-25 08:44] LABS: Bilirubin,Urine NEG (Negative); Blood,Urine NEG (Negative); Color,Urine Amber (Yellow)
--- NOTE | 2022-02-25 08:51 | Emergency Department Report ---
ED Dysuria HPI - HPI Chief Complaint: Abdominal Pain Stated Complaint: DIZZINESS/FAINTED Time Seen by Provider: 02/25/22 07:39 Duration: 2 Days Location of Discomfort: Suprapubic Severity: Mild Symptoms: Dysuria: Yes, Frequency: No, Suprapubic Pain: Yes, Flank Pain: No, Fever: No, Hematuria: No, Abdominal Pain: No, Previous UTI's: Yes Other History: Patient is a 26-year-old female that comes to the emergency room complaining of dysuria: That is so bad that she almost passed out this morning. She is taken Azo because she was having the dysuria and her urine is collated pink in color on exam. UA was sent but the Azo will interfere with the findings. Patient denies fever or chills. She denies flank pain she denies abdominal pain. There is no nausea vomiting or diarrhea. Patient denies any vaginal discharge or concern for STD ED Review of Systems ROS: Stated complaint: DIZZINESS/FAINTED Other details as noted in HPI Comment: All other systems reviewed and negative ED Past Medical Hx - Past Medical History Previous Medical History?: No Hx Hypertension: No Hx Heart Attack/AMI: No Hx Congestive Heart Failure: No Hx Diabetes: No Hx Deep Vein Thrombosis: No Hx Liver Disease: No Hx Renal Disease: No Hx Sickle Cell Disease: No Hx Seizures: No Hx Asthma: No Hx COPD: No Hx HIV: No Additional medical history: Miscarriage 2014 - Surgical History Past Surgical History?: No Hx Pacemaker: No Hx Internal Defibrillator: No - Family History Family history: no significant - Social History Smoking Status: Current Every Day Smoker Substance Use Type: None - Medications Home Medications: Home Medications Medication Instructions Recorded Confirmed Last Taken Type Sulfamethoxazole/Trimethoprim 1 each PO BID #10 tablet 02/25/22 Unknown Rx [Bactrim DS TAB] Dysuria Exam - Exam General: Vital signs noted. No distress. Alert and acting appropriately. Exam: Yes Moist Mucous Membranes, No CVA Tenderness, No Abdominal Tenderness, No Rigidity or Guarding Labs: Lab Results 02/25/22 Range/Units 08:07 Urine Color Amisha (Yellow) Urine Turbidity Clear (Clear) Urine pH 5.0 (5.0-7.0) Ur Specific [place] 1.025 (1.003-1.030) Urine Protein 100 mg/dl (Negative) mg/dL Urine Glucose (UA) 50 (Negative) mg/dL Urine Ketones Neg (Negative) mg/dL Urine Blood Neg (Negative) Urine Nitrite Negative (Negative) Ur Reducing Substances Not Reportable Urine Bilirubin Neg (Negative) Urine Ictotest Not Reportable Urine Urobilinogen 4.0 (<2.0) mg/dL Ur Leukocyte Esterase Neg (Negative) Urine WBC (Auto) 6.0 (0.0-6.0) /HPF Urine RBC (Auto) 4.0 (0.0-6.0) /HPF U Epithel Cells (Auto) 3.0 (0-13.0) /HPF Urine HCG, Qual Negative (Negative) ED Course Vital Signs 02/25/22 02/25/22 07:00 07:09 Temperature 98.4 F Pulse Rate 87 Respiratory 18 Rate Blood Pressure 142/84 [Left] O2 Sat by Pulse 100 Oximetry ED Medical Decision Making - Medical Decision Making Labs 02/25/22 08:07 Urine Color Amisha Urine Turbidity Clear Urine pH 5.0 Ur Specific [place] 1.025 Urine Protein 100 mg/dl Urine Glucose (UA) 50 Urine Ketones Neg Urine Blood Neg Urine Nitrite Negative Ur Reducing Substances Not Reportable Urine Bilirubin Neg Urine Ictotest Not Reportable Urine Urobilinogen 4.0 Ur Leukocyte Esterase Neg Urine WBC (Auto) 6.0 Urine RBC (Auto) 4.0 U Epithel Cells (Auto) 3.0 Urine HCG, Qual Negative Vital Signs 02/25/22 02/25/22 07:00 07:09 Temperature 98.4 F Pulse Rate 87 Respiratory 18 Rate Blood Pressure 142/84 [Left] O2 Sat by Pulse 100 Oximetry U. Negative. UA noted. Patient has no hypotension, tachycardia or fever. Given the use of Azo and its interfering with her UA I have treated her with Bactrim twice daily for 5 days. If her culture requires additional antibiotics please call her. On discharge patient is ambulatory, [id number] nontoxic and taking p.o. Patient discharged home with discharge plan of care including diet, activity, medications and follow-up. Patient verbalizes understanding of plan of care - Differential Diagnosis ro preg/uti Critical care attestation.: If time is entered above; I have spent that time in minutes in the direct care of this critically ill patient, excluding procedure time. ED Disposition Clinical Impression: UTI (urinary tract infection) Qualifiers: Urinary tract infection type: site unspecified Disposition: HOME / SELF CARE / HOMELESS Is pt being admited?: No Does the pt Need Aspirin: No Condition: Stable Instructions: Urinary Tract Infection, Adult, [id number], Abdominal Pain (ED) Additional Instructions: Stay well-hydrated with water Follow-up with PCP after you finish antibiotics to make sure your infection is gone away Diet as tolerated activity as tolerated Motrin or Tylenol for pain Prescriptions: Sulfamethoxazole/Trimethoprim [Bactrim DS TAB] 1 each PO BID #10 tablet Referrals: TIN FAJARDO MD [Staff Physician] - 3-5 Days Forms: Work/School Release Form(ED) Time of Disposition: 09:01
--- NOTE | 2022-02-25 11:58 | Electrocardiograph Report ---
[facility] Test Date: 2022-02-25 Test Time: 06:49:08 Pat Name: MECCA ROWLAND Department: Room: Gender: F Physician/Allergy/Immunology: [id number] : 1995 Requested By: SOL RAM Order Number: [id number] Reading MD: Brenden Lugo Measurements Intervals [place] Rate: 79 P: 75 DC: 193 QRS: 70 QRSD: 97 T: 61 QT: 396 QTc: 453 Interpretive Statements Sinus rhythm Compared to ECG 08/06/2021 17:29:09 no significant change noted. Electronically Signed On 02-25-2022 11:57:23 EDT by Brenden Lugo
== END 2022-02-25 09:19 | disposition home or self-care (01) ==
LOC: ED 06:11
DX: N39.0 Urinary tract infection, site not specified (principal); F17.200 Nicotine dependence, unspecified, uncomplicated
CPT/HCPCS: 81001; 81025; 87086; 93005; 99283